=== PATIENT | male | born 1960 | race Caucasian/White ===

== ENCOUNTER 2016-09-29 17:57 | Inpatient (IN) | payer OTHER ==
[~2016-09-29] VITALS: Ht 177.8 cm; Wt 108.7 kg
[2016-09-29] VITALS (11 sets, daily range): BP systolic 115–170; BP diastolic 55–93; PULSE 68–120; RESP 14–24; TEMP 97.5–99.5; O2SAT 95–100
[~2016-09-29 17:57] MED LIST: ASPI325T PO; ATOR40TA PO; FISH100020 PO; METO50TA; NIAC500T18 PO; PLAV75TA PO
[2016-09-29] MEDS ORDERED: ETOMIDATE 20 MG/10 ML VIAL ONE (18:24)
[2016-09-29] MEDS ORDERED: PROPOFOL 1000 MG/100 ML INJ 100 ML ONE (18:29)
[2016-09-29] MEDS ORDERED: PANTOPRAZOLE INJ 80 MG in SODIUM CHLORIDE 0.9% INJ 35 ML IV ONE (18:30)
[2016-09-29] MEDS ORDERED: OCTREOTIDE INJ 500 MCG in SODIUM CHLORID 0.9% 500 ML INJ 500 ML IV ONE (18:30)
[2016-09-29] MEDS ORDERED: SODIUM CHLORIDE 0.9% FLUSH 10 ML FLUSH IVF PRN (18:30)
[2016-09-29] MEDS ORDERED: ROSU1TAB8 PO (18:43)
[2016-09-29] MEDS ORDERED: LISI-515 PO (18:43)
[2016-09-29] MEDS ORDERED: CLOP75TA PO (18:43)
[2016-09-29] MEDS ORDERED: GABA100C4 PO (18:43)
[2016-09-29] MEDS ORDERED: TIZA4CAP3 PO (18:43)
[2016-09-29] MEDS ORDERED: DICL1CAP3 PO (18:43)
[2016-09-29] MEDS ORDERED: SODIUM CHLOR 0.9% 1000 ML INJ 1,000 ML IV ONE ×2 (18:45)
[2016-09-29] MEDS ORDERED: ETOMIDATE 20 MG/10 ML VIAL IV PUSH ONE (18:45)
[2016-09-29] MEDS ORDERED: SUCCINYLCHOLINE CHLORIDE 200 MG/10 ML VIAL IV PUSH ONE (18:45)
--- NOTE | 2016-09-29 18:46 | PD ---
HPI Chief Complaint: GI Complaint Time Seen by Provider: 18:43 Travel History International Travel<30 days: No Contact w/Intl Traveler<30days: No Traveled to known affect area: No History of Present Illness HPI 55-year-old male came to the emergency room brought by his for vomiting blood. Patient says that he was little nauseous earlier today and vomited and saw a big blob of blood. Since then he has vomited couple of times and it's all bloody. He looks in distress and very diaphoretic. Patient told me that he has never had this before. Rings about 3 cocktails of whiskey every day and has been doing it for quite a few months. He is also on Plavix. His is here with him but she seems very anxious and tearful at this point. History is limited. Patient was hemodynamically stable however. [facility] Past Medical History Narrative Medical List of his past medical, surgical, social and family history was reviewed from the nursing note. Hx Anticoagulant Therapy: Yes Cardiovascular Problems: Yes Chest Pain: Yes Diabetes: No Hypertension: Yes Respiratory: Yes (SOB) Tetanus Vaccination: Unknown Past Surgical History Cardiac Surgery: Yes (QUADRUPLE BYPASS, STENT) Thoracic Surgery: Yes Other Surgery: Yes Social History Alcohol Use: Yes (2-3 bourbon qd) Tobacco Use: Yes (FORMER) Substance Use: No Allergies-Medications (Allergen,Severity, Reaction): Coded Allergies: No Known Allergies (Unverified , 08/01/14) Comments No known drug allergies. Reported Meds & Prescriptions Reported Meds & Active Scripts Active Reported Gabapentin 100 Mg Cap 100 Mg PO HS Tizanidine (Tizanidine HCl) 4 Mg Cap 4 Mg PO TID Zorvolex (Diclofenac) 18 Mg Cap 18 Mg PO TID Rosuvastatin (Rosuvastatin Calcium) 20 Mg Tab 20 Mg PO DAILY Lisinopril 20 Mg Tab 20 Mg PO DAILY Clopidogrel (Clopidogrel Bisulfate) 75 Mg Tab 75 Mg PO DAILY Narrative Medication List of his home medications reviewed from the nursing note. Review of Systems Except as stated in HPI: all other systems reviewed are Neg Physical Exam Narrative GENERAL: Awake, anxious, confused, significant distress, obese SKIN: Cold, pale, diaphoretic HEAD: Atraumatic. Normocephalic. EYES: Pupils equal and round. No scleral icterus. No injection or drainage. Pallor ENT: No nasal bleeding or discharge. Mucous membranes pink and moist. NECK: Trachea midline. No JVD. CARDIOVASCULAR: Regular rate and rhythm. No murmur appreciated. RESPIRATORY: No accessory muscle use. Clear to auscultation. Breath sounds equal bilaterally. GASTROINTESTINAL: Abdomen soft, non-tender, nondistended. Hepatic and splenic margins not palpable. MUSCULOSKELETAL: No obvious deformities. No clubbing. No cyanosis. No edema. NEUROLOGICAL: Confused, GCS of 14. No obvious cranial nerve deficits. Motor grossly within normal limits. Normal speech. PSYCHIATRIC: Appropriate mood and affect; insight and judgment normal. Data Data Last Documented VS Orders Etomidate Inj (Amidate Inj) (09/29/16 18:24) Pantoprazole Inj (Protonix Inj) (09/29/16 18:30) Pantoprazole Inj (Protonix Inj) (09/29/16 18:30) Octreotide Inj (Sandostatin Inj) (09/29/16 18:30) Propofol 1000 Mg/100 Ml Inj (Diprivan 10 (09/29/16 18:29) Complete Blood Count With Diff (09/29/16 18:29) Comprehensive Metabolic Panel (09/29/16 18:29) Prothrombin Time / Inr (Pt) (09/29/16 18:29) Act Partial Throm Time (Ptt) (09/29/16 18:29) Type And Screen (09/29/16 18:29) Ecg Monitoring (09/29/16 18:29) Iv Access Insert/Monitor (09/29/16 18:29) Oximetry (09/29/16 18:29) Sodium Chloride 0.9% Flush (Ns Flush) (09/29/16 18:30) Chest, Single Ap (09/29/16 ) Sodium Chlor 0.9% 1000 Ml Inj (Ns 1000 M (09/29/16 18:45) Sodium Chlor 0.9% 1000 Ml Inj (Ns 1000 M (09/29/16 18:45) Succinylcholine Inj (Quelicin Inj) (09/29/16 18:45) Etomidate Inj (Amidate Inj) (09/29/16 18:45) Propofol 1000 Mg/100 Ml Inj (Diprivan 10 (09/29/16 18:45) Octreotide Inj (Sandostatin Inj) (09/29/16 19:00) Octreotide Inj (Sandostatin Inj) (09/29/16 21:00) Npo After Midnight W/ Po Meds (09/29/16 Dinner) Consent (09/29/16 18:47) Admit Order (Ed Use Only) (09/29/16 18:48) Labs Laboratory Tests Test 09/29/16 18:30 Blood Type A NEGATIVE Antibody Screen NEGATIVE Crossmatch Leukocyte-Reduced Red Blood Cells Blood Bank Comment MDM Medical Decision Making Medical Screen Exam Complete: Yes Emergency Medical Condition: Yes Medical Record Reviewed: Yes Differential Diagnosis Upper GI bleed, PUD, gastric ulcer, bleeding varicose esophageal vein Narrative Course 6:56 PM case was discussed with Dr. Arriaga who was in the department. I decided to intubate the patient to protect his airway. Please refer to my procedure note. Patient got immediate to large bore IVs. He was getting IV fluid bolus. I asked for 4 units of uncross matched blood and patient has received 2 units of PRBC. OG tube was inserted and so far patient has put out 800 ML's of bright red blood. I have spoken with the cook supervisor who will admit the patient and the procedure will be done in the ICU. I discussed this with the . Critical Care Narrative Aggregate critical care time was 30 minutes. Time to perform other separately billable procedures was not included in the critical care time. My time did not include minutes spent treating any other patients simultaneously or on activities that did not directly contribute to the patient's treatment. The services I provided to this patient were to treat and/or prevent clinically significant deterioration that could result in: Massive upper GI bleed, volume resuscitation I provided critical care services requiring my management, as noted below: Chart data review, documentation time, medication orders and management, vital sign assessments/reviewing monitor data, ordering and reviewing lab tests, ordering and interpreting/reviewing x-rays and diagnostic studies, care of the patient and discussion of the patient with the admitting physicians. Procedures Procedure Narrative After the risks and benefits were discussed the following procedure was performed: INTUBATION: The patient was put in optimal position for the procedure. Rapid sequence intubation was initiated by me using 20 milligrams of etomidate IV and 100 milligrams of succinylcholine IV. The patient was intubated with a 7.5 cuffed endotracheal tube. Tube placement was confirmed by visualization of the tube and balloon passing through the cords, capnometry and subsequent chest x-ray. Breath sounds were equal and well aerated bilaterally postintubation. No breath sounds over stomach. Patient tolerated procedure well. EKG Prior to Arrival: No Physician Communication Physician Communication Dr. Arriaga, Dr. Ramsay Diagnosis Primary Impression: Upper GI bleed Additional Impression: Respiratory failure Qualified Code: J96.00 - Acute respiratory failure, unspecified whether with hypoxia or hypercapnia Admitting Information Admitting Physician Requests: Admit Terri Maradiaga MD Sep 29, 2016 18:46
[2016-09-29] MEDS ORDERED: MIDAZOLAM HCL 5 MG/ML VIAL (1 ML) ONE (18:50)
[2016-09-29] MEDS ORDERED: ROCURONIUM INJ 50 MG/5 ML VIAL ONE ×2 (18:51→18:54)
[2016-09-29] MEDS ORDERED: PROCHLORPERAZINE 25 MG SUPP RECTAL PRN (19:00)
[2016-09-29] MEDS ORDERED: OCTREOTIDE INJ 50 MCG/ML AMP IV ONE (19:00)
[2016-09-29] MEDS ORDERED: MAGNESIUM HYDROXIDE SUSP 30 ML CUP PO PRN (19:00)
[2016-09-29] MEDS ORDERED: ROCURONIUM INJ 100 MG/10 ML VIAL IV ONE (19:00)
[2016-09-29] MEDS ORDERED: RESP: ALBUTEROL 2.5 MG/IPRATROPIUM 0.5 MG NEB (PRN) INH (19:00)
[2016-09-29] MEDS ORDERED: BISACODYL 10 MG SUPP RECTAL PRN (19:00)
[2016-09-29] MEDS ORDERED: SENNOSIDES 8.6 MG TAB PO PRN (19:00)
[2016-09-29] MEDS ORDERED: ONDANSETRON HCL 4 MG/2 ML VIAL IV PRN (19:00)
[2016-09-29] MEDS ORDERED: MORPHINE SULFATE 4 MG/ML INJ IV PRN (19:00)
[2016-09-29] MEDS ORDERED: MIDAZOLAM HCL 2 MG/2 ML VIAL IV PUSH ONE (19:00)
[2016-09-29] MEDS ORDERED: CHLORHEXIDINE GLUCONATE 2 % 1 PACK (2 CLOTHS) TOP PRN (19:00)
[2016-09-29] MEDS ORDERED: METOCLOPRAMIDE HCL 10 MG/2 ML VIAL IV PRN (19:00)
[2016-09-29] MEDS ORDERED: SODIUM CHLORIDE 0.9% FLUSH 10 ML FLUSH PRN (19:00)
[2016-09-29] MEDS ORDERED: MISCELLANEOUS NURSING INFORMATION XX SCH (19:00)
[2016-09-29] MEDS ORDERED: LACTULOSE SYRUP 20 GM/30 ML CUP PO PRN (19:00)
[2016-09-29 19:13] LABS: BASOPHIL # 0.2 TH/MM3 (0-0.2); BASOPHIL % 0.8 % (0.0-2.0); EOSINOPHIL # 0.5 TH/MM3 (0-0.4); EOSINOPHIL % 2.3 % (0.0-4.0); HEMATOCRIT 40.6 % (39.0-51.0); HEMO FLAGS DIFF FINAL; LYMPH % 19.5 % (9.0-44.0); LYMPHOCYTE # 3.8 TH/MM3 (1.0-4.8); MEAN CELL VOLUME 89.5 FL (80.0-100.0); MEAN CORPUSCULAR HGB CONC 34.7 % (32.0-36.0); MONO % 5.8 % (0.0-8.0); NEUT % 71.6 % (16.0-70.0); PLATELET COUNT 227 TH/MM3 (150-450); RED BLOOD COUNT 4.53 MIL/MM3 (4.50-5.90); RED CELL DISTRIBUTION WIDTH 13.4 % (11.6-17.2); WHITE BLOOD COUNT 19.5 TH/MM3 (4.0-11.0)
[2016-09-29] MEDS: PANTOPRAZOLE INJ 80 MG in SODIUM CHLORIDE 0.9% INJ 100 ML IV SCH (19:17)
--- NOTE | 2016-09-29 19:28 | RADRPT ---
EXAM DATE/TIME: 09/29/2016 18:55 [place] COMPARISON: No previous studies available for comparison. INDICATIONS : Upper GI bleed ; post intubation. MEDICAL HISTORY : Cardiovascular disease. SURGICAL HISTORY : CABG. stent 2016 ENCOUNTER: Initial ACUITY: 1 day PAIN SCORE: Non-responsive. LOCATION: Bilateral upper chest FINDINGS: Bibasilar consolidation seen on the left. No pleural effusion. No pneumothorax. Heart size within normal limits. Previous median sternotomy. There is a nasogastric tube coiled in the stomach. Endotracheal tube tip is about 4 cm above the evelyne na. CONCLUSION: Mild left base consolidation. Lines and tubes as above. Dewayne Herndon MD on September 29, 2016 at 19:25 Board Certified Radiologist. This report was verified electronically.
[2016-09-29 19:35] LABS: ALT (GPT) 67 U/L (12-78)
[2016-09-29 19:36] LABS: ALKALINE PHOSPHATASE 60 U/L (45-117); TOTAL BILIRUBIN ADULT 0.5 MG/DL (0.2-1.0)
[2016-09-29 19:42] LABS: APTT (PATIENT) 21.2 SEC (24.3-30.1); PROTHROMBIN TIME - PATIENT 11.2 SEC (9.8-11.6)
--- NOTE | 2016-09-29 19:43 | HHI.HP ---
HPI Service Critical Care Medicine Primary Care Physician Lulú Mathews MD Admission Diagnosis upper GI bleed, respiratory failure Diagnosis: Travel History International Travel<30 Days: No Contact w/Intl Traveler <30 Da: No Traveled to Known Affected Are: No History of Present Illness 55-year-old male came to the emergency room brought by his for vomiting blood. Patient was little nauseous earlier today and vomited and saw a big blob of blood. Since then he has vomited couple of times and it's all bloody. He looked in distress and very diaphoretic. Patient drinks about 3 cocktails of whiskey every day and has been doing it for quite a few months. He is also on Plavix. While in the emergency department he vomited a large amount of blocked per documentation about 800 cc. He was intubated by ER attending for an airway protection and was taking emergently to ICU where the EGD was performed by GI specialist. Review of Systems ROS Unable to obtain patient is sedated and intubated Past Family Social History Allergies: Coded Allergies: No Known Allergies (Unverified , 08/01/14) Past Medical History Hypertension Dyslipidemia Coronary artery disease Past Surgical History Unable to obtain Reported Medications Reported Meds & Active Scripts Active Reported Gabapentin 100 Mg Cap 100 Mg PO HS Tizanidine (Tizanidine HCl) 4 Mg Cap 4 Mg PO TID Zorvolex (Diclofenac) 18 Mg Cap 18 Mg PO TID Rosuvastatin (Rosuvastatin Calcium) 20 Mg Tab 20 Mg PO DAILY Lisinopril 20 Mg Tab 20 Mg PO DAILY Clopidogrel (Clopidogrel Bisulfate) 75 Mg Tab 75 Mg PO DAILY Active Ordered Medications Current Medications Medications (Trade) Dose Ordered Sig/Any Route PRN Reason Start Time Stop Time Status Last Admin Dose Admin Pantoprazole Sodium/Sodium Chloride (Protonix Inj/NS Inj) 100 ml @ 10 mls/hr Q10H IV 09/29/16 18:30 09/29/16 19:17 Sodium Chloride 2 ml 2 ml UNSCH PRN IVF FLUSH AFTER USING IV ACCESS 09/29/16 18:30 Propofol 100 ml @ 0 mls/hr TITRATE IV 09/29/16 18:45 Octreotide Acetate 500 mcg/ Sodium Chloride 500.0 ml @ 50 mls/hr Q10H IV 09/29/16 21:00 09/29/16 23:02 Sodium Chloride (NS 1000 ml Inj) 1,000 ml @ 184 mls/hr Q5H27M IV 09/29/16 18:50 Sodium Chloride (NS Flush) 2 ml UNSCH PRN .XX FLUSH AFTER USING IV ACCESS 09/29/16 19:00 Sodium Chloride (NS Flush) 2 ml BID .XX 09/29/16 21:00 09/29/16 23:01 Morphine Sulfate (Morphine Inj) 2 mg Q2H PRN IV PAIN SCALE 6 TO 10 09/29/16 19:00 Pantoprazole Sodium (Protonix Inj) 40 mg Q12H IV 09/29/16 21:00 09/29/16 23:01 Midazolam HCl (Versed Inj) 2 mg Q1H PRN IV SEDATION 09/29/16 19:00 09/29/16 23:03 Artificial Tears (Tears Naturale Opth Soln) 1 drop TID EACH EYE 09/30/16 09:00 Ondansetron HCl (Zofran Inj) 4 mg Q6H PRN IV NAUSEA OR VOMITING 09/29/16 19:00 Metoclopramide HCl (Reglan Inj) 10 mg Q6H PRN IV NAUSEA OR VOMITING 09/29/16 19:00 Prochlorperazine (Compazine Supp) 25 mg Q12H PRN RECTAL NAUSEA OR VOMITING 09/29/16 19:00 Zolpidem Tartrate (Ambien) 5 mg HS PRN PO INSOMNIA 09/29/16 19:00 Miscellaneous Information 1 Q361D XX 09/29/16 19:00 09/29/16 22:00 Chlorhexidine Gluconate (Chlorhexidine 2% Cloth) 3 pack Taper DAILY@04 TOP 09/30/16 04:00 09/26/17 03:59 Chlorhexidine Gluconate (Chlorhexidine 2% Cloth) 3 pack UNSCH PRN TOP HYGIENIC CARE 09/29/16 19:00 Senna/Docusate Sodium (Adela-Colace) 1 tab BID PO 09/29/16 21:00 Magnesium Hydroxide (Milk Of Magnesia Liq) 30 ml Q12H PRN PO MILD - MODERATE CONSTIPATION 09/29/16 19:00 Sennosides (Senokot) 17.2 mg Q12H PRN PO MODERATE - SEVERE CONSTIPATION 09/29/16 19:00 Bisacodyl (Dulcolax Supp) 10 mg DAILY PRN RECTAL SEVERE CONSITIPATION 09/29/16 19:00 Lactulose 30 ml 30 ml DAILY PRN PO SEVERE CONSITIPATION 09/29/16 19:00 Midazolam HCl (Versed Inj) 100 ml @ 0 mls/hr TITRATE IV 09/29/16 22:45 09/29/16 23:03 Family History Unable to obtain Social History Drinks about 3 cocktails per day Denies cigarette and illicit drug abuse Physical Exam Vital Signs Vital Signs Date Time Temp Pulse Resp B/P Pulse Ox O2 Delivery O2 Flow Rate FiO2 09/29/16 19:09 120 18 131/60 100 Auto-Vent 09/29/16 18:40 97 100 09/29/16 18:32 24 96 Room Air 09/29/16 18:28 97.7 99 24 170/90 95 09/29/16 18:00 98.4 88 24 146/93 98 Room Air Physical Exam GENERAL: Well-nourished, well-developed patient. SKIN: Warm and dry. HEAD: Normocephalic. EYES: No scleral icterus. No injection or drainage. NECK: Supple, trachea midline. No JVD or lymphadenopathy. CARDIOVASCULAR: Regular rate and rhythm without murmurs, gallops, or rubs. RESPIRATORY: Breath sounds equal bilaterally. No accessory muscle use. GASTROINTESTINAL: Abdomen soft, non-tender, nondistended. MUSCULOSKELETAL: No cyanosis, or edema. BACK: Nontender without obvious deformity. No CVA tenderness. EXTREMITIES: No clubbing cyanosis or edema Laboratory Laboratory Tests Test 09/29/16 18:30 White Blood Count 19.5 Red Blood Count 4.53 Hemoglobin 14.1 Hematocrit 40.6 Mean Corpuscular Volume 89.5 Mean Corpuscular Hemoglobin 31.0 Mean Corpuscular Hemoglobin 34.7 Concent Red Cell Distribution Width 13.4 Platelet Count 227 Mean Platelet Volume 8.9 Neutrophils (%) (Auto) 71.6 Lymphocytes (%) (Auto) 19.5 Monocytes (%) (Auto) 5.8 Eosinophils (%) (Auto) 2.3 Basophils (%) (Auto) 0.8 Neutrophils # (Auto) 14.0 Lymphocytes # (Auto) 3.8 Monocytes # (Auto) 1.1 Eosinophils # (Auto) 0.5 Basophils # (Auto) 0.2 CBC Comment DIFF FINAL Differential Comment Prothrombin Time 11.2 Prothromb Time International 1.0 Ratio Activated Partial 21.2 Thromboplast Time Total Bilirubin 0.5 Alanine Aminotransferase 67 (ALT/SGPT) Alkaline Phosphatase 60 Total Protein 7.0 Blood Type A NEGATIVE Blood Bank Comment Result Diagram: 09/29/16 1830 Imaging Last 24 hours Impressions Chest X-Ray 09/29/16 0000 Signed Impressions: Service Date/Time: Thursday, September 29, 2016 18:55 - CONCLUSION: Mild left base consolidation. Lines and tubes as above. Dewayne Herndon MD Assessment and Plan Assessment and Plan Respiratory failure - Intubated for an airway protection - Continue mechanical ventilation - Keep intubated per GI request - SBT and attempt weaning trials when hemodynamically stable and without hematemesis Upper GI bleed - GI consult appreciated - Status post upper EGD and cauterization of distal esophagus - Continue Protonix drip and octreotide - Transfuse to keep hemoglobin above 7 - Management per GI Coronary artery disease - Hold Plavix due to active GI bleed - No acute issues - Supportive care History of hypertension - Hold lisinopril due to volume loss - Will resume in hemodynamically stable Dyslipidemia - Continue rosuvastatin DVT GI prophylaxis - Teds SCDs - No pharmacological DVT prophylaxis due to acute GI bleed - IV Protonix Critical Care: The total critical care time was 35 minutes. Time to perform other separately billable procedures was not included in the critical care time. Barak Ramsay MD Sep 29, 2016 19:43
[2016-09-29] MEDS: MIDAZOLAM HCL 2 MG/2 ML VIAL IV PRN ×2 (19:52→23:03)
[2016-09-29 20:01] LABS: ANION GAP 12 MEQ/L (5-15); AST (GOT) 35 U/L (15-37); BICARBONATE 22.3 MEQ/L (21.0-32.0); BLOOD UREA NITROGEN 32 MG/DL (7-18); CHLORIDE 106 MEQ/L (98-107); GLOMERULAR FILTRATION RATE 74 ML/MIN (>89); POTASSIUM 4.1 MEQ/L (3.5-5.1); SODIUM (NA) 140 MEQ/L (136-145)
[2016-09-29 20:01] LABS: BLOOD GAS BASE EXCESS -1.9 mmol/L (-2-2); BLOOD GAS HCO3 23 mmol/L (22-26); BLOOD GAS METHEMOGLOBIN 0.8 % (0-2); BLOOD GAS O2 HGB SATURATION 98 % (90-100); BLOOD GAS OXYGEN CONTENT 20.6 Vol % (12.0-20.0); BLOOD GAS PCO2 46 mmHg (38-42); BLOOD GAS PO2 304 mmHG (61-120); BLOOD GAS TOTAL HGB 14.5 G/DL (12.0-16.0); CRITICAL VALUE NO; OXYGEN DEVICE VENTILATOR; TEMP CORR TO 98.6
[2016-09-29 20:02] LABS: DRAW SITE RT RADIAL; FIO2 100 %; NUMBER OF ARTERIAL PUNCTURES 1; STAT YES; ULNAR PULSE PRESENT; VENT SETTINGS AC/14/600/PEEP5
[2016-09-29] MEDS: DOCUSATE SODIUM 50 MG/SENNA 8.6 MG TAB PO SCH (21:00)
[2016-09-29] MEDS ORDERED: OCTREOTIDE INJ 500 MCG in SODIUM CHLORID 0.9% 500 ML INJ 499.5 ML IV SCH (21:00)
[2016-09-29] MEDS ORDERED: EPINEPHrine HCL (1:10,000) 1 MG/10 ML SYRINGE OTHER ONE (21:23)
--- NOTE | 2016-09-29 21:58 | GIPROC ---
[facility] [address] [facility]. [facility], [address] EGD PROCEDURE REPORT EXAM DATE: 09/29/2016 PATIENT NAME: Geraldo Frias MR #: [id number] BIRTHDATE: 1960 ATTENDING: Edward Arriaga MD ORDER #: [id number] SATELLITE DISH INSTALLER: Giovana Booth and Lorene Owens STATUS: inpatient INDICATIONS: The patient is a 55 yr old male here for an EGD due to hematemesis PROCEDURE PERFORMED: EGD w/ ablation EGD w/ directed submucosal injection(s), any substance MEDICATIONS: Per Anesthesia and None. TOPICAL ANESTHETIC: CONSENT: The patient understands the risks and benefits of the procedure and understands that these risks include, but are not limited to: sedation, allergic reaction, infection, perforation and/or bleeding. Alternative means of evaluation and treatment include, among others: physical exam, x-rays, and/or surgical intervention. The patient elects to proceed with this endoscopic procedure. medical equipment was checked for proper function. Hand hygiene and appropriate measures for infection prevention was taken. After the risks, benefits and alternatives of the procedure were thoroughly explained, Informed consent was verified, confirmed and timeout was successfully executed by the treatment team. The patient was anesthetized with topical anesthesia and the Pentax [id number] endoscope was introduced through the mouth and advanced to the second portion of the duodenum. Retroflexed views revealed no abnormalities The gastroscope was then slowly withdrawn and removed. ESOPHAGUS: Large friable area of ulceration , probable darlin wies tear distal esophagus. Oozing blood with large clots adherant. Blood in the fundus able to be washed away. Distal esophagus injected with a total of 5 cc of epinephrine and cauterized. Good hemostasis obtained. NG replaced. STOMACH: The mucosa of the stomach appeared normal. DUODENUM: The duodenal mucosa appeared normal in the 2nd part of the duodenum. ADVERSE EVENTS: There were no complications. IMPRESSIONS: 1. Large friable area of ulceration , probable darlin wies tear distal esophagus. Oozing blood with large clots adherant. Blood in the fundus able to be washed away. Distal esophagus injected with a total of 5 cc of epinephrine and cauterized. Good hemostasis obtained. NG replaced 2. The mucosa of the stomach appeared normal 3. Normal duodenal mucosa in the 2nd part of the duodenum 4. Retroflexed views revealed no abnormalities RECOMMENDATIONS: Type and screen for 4 additional PRBC, transfuse 1 packet of platelets. Monitor serial H/H. Leave intubated. PATIENT CONDITION: stable DISPOSITION: Inpatient REPEAT EXAM: Return 1 day EGD Edward Arriaga MD eSigned: Edward Arriaga MD 09/29/2016 9:57 PM cc: PATIENT NAME: Geraldo Frias MR#: [id number]
[2016-09-29] MEDS: SODIUM CHLORIDE 0.9% FLUSH 10 ML FLUSH SCH (23:01)
[2016-09-29] MEDS: PANTOPRAZOLE SODIUM 40 MG VIAL IV SCH (23:01)
[2016-09-29] MEDS: MIDAZOLAM 100 MG/ML INJ 100 ML IV SCH (23:03)
[2016-09-29] MEDS: PROPOFOL 1000 MG/100 ML INJ 100 ML IV SCH (23:38)
[2016-09-29] MEDS: SODIUM CHLOR 0.9% 1000 ML INJ 1,000 ML IV SCH (23:39)
[2016-09-30] VITALS (19 sets, daily range): BP systolic 122–134; BP diastolic 69–78; PULSE 73–85; RESP 14–17; TEMP 98.7–100.3; O2SAT 94–100
[2016-09-30 01:18] LABS: HEMATOCRIT 47.2 % (39.0-51.0); REVIEW FLAG FINAL
[2016-09-30] MEDS: OCTREOTIDE INJ 500 MCG in SODIUM CHLORID 0.9% 500 ML INJ 499.5 ML IV SCH ×5 (01:52→21:21)
[2016-09-30] MEDS: CHLORHEXIDINE GLUCONATE 2 % 1 PACK (2 CLOTHS) TOP SCH (01:52)
[2016-09-30] MEDS: PROPOFOL 1000 MG/100 ML INJ 100 ML IV SCH ×5 (03:18→20:05)
[2016-09-30 03:29] LABS: REVIEW FLAG FINAL
[2016-09-30 03:39] LABS: PROTHROMBIN TIME - PATIENT 11.4 SEC (9.8-11.6)
[2016-09-30 03:47] LABS: ALT (GPT) 56 U/L (12-78); ANION GAP 7 MEQ/L (5-15); AST (GOT) 29 U/L (15-37); BICARBONATE 27.8 MEQ/L (21.0-32.0); BLOOD UREA NITROGEN 22 MG/DL (7-18); CHLORIDE 109 MEQ/L (98-107); GLOMERULAR FILTRATION RATE 92 ML/MIN (>89); POTASSIUM 3.9 MEQ/L (3.5-5.1); SODIUM (NA) 144 MEQ/L (136-145)
[2016-09-30 03:48] LABS: ALKALINE PHOSPHATASE 58 U/L (45-117); TOTAL BILIRUBIN ADULT 0.7 MG/DL (0.2-1.0)
[2016-09-30] MEDS: PANTOPRAZOLE INJ 80 MG in SODIUM CHLORIDE 0.9% INJ 100 ML IV SCH ×2 (04:44→15:30)
[2016-09-30] MEDS: SODIUM CHLOR 0.9% 1000 ML INJ 1,000 ML IV SCH (04:45)
--- NOTE | 2016-09-30 07:58 | MB ---
cc: DEVIKA ROJAS MD, HASSAN M.D. DATE OF CONSULTATION: 09/29/2016 REASON FOR CONSULTATION Hematemesis. HISTORY OF PRESENT ILLNESS Mr. Frias is a 55-year-old gentleman brought in by his for occasional bleeding in the rectum, but basically on the day of admission he threw up some blood, became diaphoretic and was brought in by his . In the emergency room he threw up a couple more times. By the time I got there to see him he had been electively intubated with an NG tube in place which is pulling dark red blood from his stomach. He remains hemodynamically stable. He is not passing any blood from his rectum. PAST MEDICAL HISTORY 1. Coronary artery disease. 2. Quadruple bypass with stent placement. No other medical history is obtainable at this time. SOCIAL HISTORY The patient drinks 2-3 drinks daily, is a former smoker. ALLERGIES None documented. MEDICATIONS Medicines on admission: 1. Gabapentin. 2. Tizanidine. 3. Diclofenac. 4. Lovastatin. 5. Lisinopril. 6. Plavix. 7. The patient also received a Toradol shot recently. REVIEW OF SYSTEMS Currently the patient is intubated with an NG tube showing dark blood. PHYSICAL EXAMINATION GENERAL: A well-nourished man in no apparent distress, sedated and intubated. VITAL SIGNS: Blood pressure 131/60. HEAD AND NECK: Anicteric sclera. CHEST: Bilateral air entry with rales. ABDOMEN: Obese, soft, nontender. No hepatosplenomegaly. Bowel sounds are present. SUPERVISOR TUMBLERS: Exam is nonfocal. RECTAL: Exam deferred at this time. LABORATORY Labs revealed hemoglobin 14, platelets 227. INR is pending. IMAGING A chest x-ray shows mild left base consolidation, otherwise unremarkable. IMPRESSION Acute GI bleeding, very likely peptic ulcer disease, possibility of liver-related bleeding. RECOMMENDATIONS Leave NG tube to low intermittent suctioning. Type and screen for 4 units of blood. Octreotide and IV Protonix recommended. Consents have been obtained for an EGD. The plan is to scope the patient this evening once he is moved to an intensive care unit location. Will follow with you. Thank you for this referral. MD ERIK Cunha/DODIE /7:42 PM /7:48 AM
[2016-09-30] MEDS: SODIUM CHLORIDE 0.9% FLUSH 10 ML FLUSH SCH ×2 (09:00→20:03)
[2016-09-30] MEDS: ARTIFICIAL TEARS OPTH SOLN 15 ML BTL EACH EYE SCH ×3 (09:00→17:23)
[2016-09-30] MEDS: DOCUSATE SODIUM 50 MG/SENNA 8.6 MG TAB PO SCH ×2 (09:00→20:04)
[2016-09-30] MEDS: PANTOPRAZOLE SODIUM 40 MG VIAL IV SCH ×2 (09:00→20:04)
--- NOTE | 2016-09-30 11:08 | HHI.CCPN ---
Subjective Remarks/Hospital Course 55-year-old male came to the emergency room brought by his for vomiting blood. Patient was little nauseous earlier today and vomited and saw a big blob of blood. Since then he has vomited couple of times and it's all bloody. He looked in distress and very diaphoretic. Patient drinks about 3 cocktails of whiskey every day and has been doing it for quite a few months. He is also on Plavix. While in the emergency department he vomited a large amount of blocked per documentation about 800 cc. He was intubated by ER attending for an airway protection and was taking emergently to ICU where the EGD was performed by GI specialist. Subjective: 09/30: Afebrile. NG tube continues to low intermittent wall suction, with coffee ground output. Patient remains sedated and intubated. OGT output since admission to ICU was approximately 850 cc overnight. Plans for repeat EGD today. Objective Vital Signs Date Time Temp Pulse Resp B/P Pulse Ox O2 Delivery O2 Flow Rate FiO2 09/30/16 10:26 97 40 09/30/16 10:00 77 09/30/16 08:00 99.4 16 134/78 09/29/16 20:19 Room Air Intake and Output 09/29/16 09/29/16 09/30/16 08:00 16:00 00:00 Intake Total 1313 ml Output Total 1900 ml Balance -587 ml Result Diagram: 09/30/16 0310 09/30/16 0310 Other Results Laboratory Tests Test 09/29/16 19:49 Blood Gas Puncture Site RT RADIAL Blood Gas Patient Temperature 98.6 Blood Gas HCO3 23 mmol/L (22-26) Blood Gas Base Excess -1.9 mmol/L (-2-2) Blood Gas Oxygen Saturation 98 % (90-100) Arterial Blood pH 7.33 (7.380-7.420) Arterial Blood Partial 46 mmHg (38-42) Pressure CO2 Arterial Blood Partial 304 mmHG Pressure O2 (61-120) Arterial Blood Oxygen Content 20.6 Vol % (12.0-20.0) Arterial Blood 1.0 % (0-4) Carboxyhemoglobin Arterial Blood Methemoglobin 0.8 % (0-2) Blood Gas Hemoglobin 14.5 G/DL (12.0-16.0) Oxygen Delivery Device VENTILATOR Blood Gas Ventilator Setting AC/14/600/PEEP5 Blood Gas Inspired Oxygen 100 % Imaging Last 24 hours Impressions Chest X-Ray 09/29/16 0000 Signed Impressions: Service Date/Time: Thursday, September 29, 2016 18:55 - CONCLUSION: Mild left base consolidation. Lines and tubes as above. Dewayne Herndon MD Objective Remarks GENERAL: Well-nourished, well-developed patient intubated and sedated. SKIN: Warm and dry. HEAD: Normocephalic. EYES: No scleral icterus. No injection or drainage. NECK: Supple, trachea midline. No JVD or lymphadenopathy. Orotracheal intubation CARDIOVASCULAR: Regular rate and rhythm without murmurs, gallops, or rubs. RESPIRATORY: Breath sounds equal bilaterally. No accessory muscle use. GASTROINTESTINAL: Abdomen soft, non-tender, nondistended. OG T to low intermittent wall suction coffee ground emesis noted MUSCULOSKELETAL: No cyanosis, or edema. EXTREMITIES: No clubbing cyanosis or edema Procedures Planned repeat EGD at bedside. Urinary Catheter: Yes Sethi insert reason: Measure Accurate Output Date of Insertion: Sep 29, 2016 Vascular Central Line Catheter: No A/P Assessment and Plan Respiratory failure - Intubated for an airway protection - Continue mechanical ventilation before meals 600/14/0.60/5 - Keep intubated per GI request - SBT and attempt weaning trials when hemodynamically stable and without hematemesis -Continue Versed and propofol infusions for ventilator synchrony Upper GI bleed Mahi-Crenshaw tear - GI following-Dr. Palomares - Status post upper EGD and cauterization of distal esophagus - Continue Protonix drip and octreotide - Transfuse to keep hemoglobin above 7 - Management per GI-plan for repeat EGD today Coronary artery disease - Hold Plavix due to active GI bleed - No acute issues - Supportive care History of hypertension - Hold lisinopril due to volume loss - Will resume in hemodynamically stable Dyslipidemia - Continue rosuvastatin DVT GI prophylaxis - Teds SCDs - No pharmacological DVT prophylaxis due to acute GI bleed - IV Protonix Msk: Functional maintenance Critical Care: This patient remains critically ill with one or more organ systems which are or may become a threat to life. I have spent in excess of 49 minutes discontinuously in the care and management of this patient. This time is exclusive of procedures, and includes, but is not limited to, evaluation of the patient, review of the medical record, discussions with family, consultants, nursing staff, or respiratory therapy, and documentation in the medical record. Physician Swathi Montanez MD Sep 30, 2016 11:08
[2016-09-30] MEDS: DEXT 5%-NACL 0.9% 1000 ML INJ 1,000 ML IV SCH ×2 (11:52→20:05)
[2016-09-30] MEDS ORDERED: EPINEPHrine HCL (1:1000) 1 MG/ML VIAL OTHER ONE (14:00)
--- NOTE | 2016-09-30 14:14 | GIPROC ---
[facility] [place] [address] [facility]. [facility], [address] EGD PROCEDURE REPORT EXAM DATE: 09/30/2016 PATIENT NAME: Geraldo Frias MR #: [id number] BIRTHDATE: 1960 ATTENDING: Edward Arriaga MD ORDER #: [id number] CLOTHING DESIGNER: Flaca Gonzalez and Fan Marshall STATUS: inpatient INDICATIONS: The patient is a 55 yr old male here for an EGD due to acute post hemorrhagic anemia and hematemesis PROCEDURE PERFORMED: EGD w/ ablation EGD w/ directed submucosal injection(s), any substance MEDICATIONS: None and Per Anesthesia. TOPICAL ANESTHETIC: CONSENT: The patient understands the risks and benefits of the procedure and understands that these risks include, but are not limited to: sedation, allergic reaction, infection, perforation and/or bleeding. Alternative means of evaluation and treatment include, among others: physical exam, x-rays, and/or surgical intervention. The patient elects to proceed with this endoscopic procedure. medical equipment was checked for proper function. Hand hygiene and appropriate measures for infection prevention was taken. After the risks, benefits and alternatives of the procedure were thoroughly explained, Informed consent was verified, confirmed and timeout was successfully executed by the treatment team. The patient was anesthetized with topical anesthesia and the Pentax EG-[id number] endoscope was introduced through the mouth and advanced to the second portion of the duodenum. Retroflexed views revealed blood in fundus The gastroscope was then slowly withdrawn and removed. ESOPHAGUS: Two ranging between 5-9mm in size bleeding and shallow ulcers with a visible vessel were found in the distal esophagus. Bipolar (BICAP) cautery with a 10Fr probe was applied to the sites for 5 secs. Moderate pressure was applied to the cautery site with complete hemostasis achieved. Submucosal injection of 3ml of epinephrine 1:10,000 was performed around the bleeding site with partial hemostasis achieved. Adherent blood. DUODENUM: The duodenal mucosa appeared normal. ADVERSE EVENTS: There were no complications. IMPRESSIONS: 1. Two ranging between 5-9mm in size ulcers were found in the distal esophagus; Bipolar (BICAP) cautery with a 10Fr probe was applied to the sites for 5 secs; with complete hemostasis achieved; Submucosal injection of 3ml of epinephrine 1:10,000 was performed around the bleeding site 2. Adherent blood 3. Normal duodenal mucosa 4. Retroflexed views revealed blood in fundus RECOMMENDATIONS: 1. Continue PPI 2. Keep intubated, on iv ppi and octreotide PATIENT CONDITION: stable DISPOSITION: Inpatient REPEAT EXAM: Return as needed for EGD Edward Arriaga MD eSigned: Edward Arriaga MD 09/30/2016 2:13 PM cc: PATIENT NAME: Geraldo Frias MR#: [id number]
[2016-09-30] MEDS ORDERED: PROPOFOL 200 MG/20 ML AMP IV ONE (14:35)
[2016-09-30] MEDS: MIDAZOLAM 100 MG/ML INJ 100 ML IV SCH (15:29)
[2016-09-30 16:22] LABS: HEMATOCRIT 39.7 % (39.0-51.0)
[2016-09-30 16:24] LABS: REVIEW FLAG FINAL
[2016-10-01] VITALS (17 sets, daily range): BP systolic 112–151; BP diastolic 54–83; PULSE 74–100; RESP 14–18; TEMP 99.4–101; O2SAT 94–99
[2016-10-01] MEDS: PROPOFOL 1000 MG/100 ML INJ 100 ML IV SCH ×4 (00:16→11:15)
[2016-10-01] MEDS: PANTOPRAZOLE INJ 80 MG in SODIUM CHLORIDE 0.9% INJ 100 ML IV SCH ×3 (00:32→21:35)
[2016-10-01] MEDS: CHLORHEXIDINE GLUCONATE 2 % 1 PACK (2 CLOTHS) TOP SCH (00:32)
[2016-10-01 01:07] LABS: HEMATOCRIT 36.3 % (39.0-51.0); REVIEW FLAG FINAL
[2016-10-01] MEDS: OCTREOTIDE INJ 500 MCG in SODIUM CHLORID 0.9% 500 ML INJ 499.5 ML IV SCH ×5 (03:10→21:37)
--- NOTE | 2016-10-01 04:26 | RADRPT ---
EXAM DATE/TIME: 10/01/2016 03:42 [facility] COMPARISON: CHEST SINGLE AP, September 29, 2016, 18:55. INDICATIONS : Short of breath. MEDICAL HISTORY : Cardiovascular disease. SURGICAL HISTORY : CABG. ENCOUNTER: Subsequent ACUITY: 2 days PAIN SCORE: 0/10 LOCATION: Bilateral chest FINDINGS: There is worsening perivascular parenchymal process and worse in the lung bases since the prior exami nation probable worsening pulmonary edema. Pneumonia in the left lung base is difficult to exclude. E T tube, and NG tube have not changed. CONCLUSION: Probable worsening pulmonary edema. Jemal Ramirez MD on October 01, 2016 at 4:22 Board Certified Radiologist. This report was verified electronically.
[2016-10-01 05:15] LABS: BLOOD GAS BASE EXCESS -0.8 mmol/L (-2-2); BLOOD GAS CARBOXYHEMOGLOBIN 1.7 % (0-4); BLOOD GAS HCO3 24 mmol/L (22-26); BLOOD GAS METHEMOGLOBIN 1.2 % (0-2); BLOOD GAS O2 HGB SATURATION 95 % (90-100); BLOOD GAS OXYGEN CONTENT 16.1 Vol % (12.0-20.0); BLOOD GAS PCO2 40 mmHg (38-42); BLOOD GAS PO2 96 mmHg (61-120); CRITICAL VALUE NO; OXYGEN DEVICE VENTILATOR; TEMP CORR TO 98.6
[2016-10-01 05:16] LABS: DRAW SITE RT RADIAL; FIO2 40 %; NUMBER OF ARTERIAL PUNCTURES 1; STAT NO; ULNAR PULSE PRESENT
[2016-10-01 05:17] LABS: VENT SETTINGS AC/RR14/VT600/PEEP5
[2016-10-01 07:07] LABS: HEMATOCRIT 36.2 % (39.0-51.0); MEAN CELL VOLUME 87.8 FL (80.0-100.0); PLATELET COUNT 119 TH/MM3 (150-450); RED BLOOD COUNT 4.12 MIL/MM3 (4.50-5.90); RED CELL DISTRIBUTION WIDTH 14.7 % (11.6-17.2); WHITE BLOOD COUNT 10.9 TH/MM3 (4.0-11.0)
[2016-10-01 07:20] LABS: BICARBONATE 23.8 MEQ/L (21.0-32.0); MAGNESIUM 1.9 MG/DL (1.5-2.5); POTASSIUM 3.6 MEQ/L (3.5-5.1)
[2016-10-01] MEDS: SODIUM CHLORIDE 0.9% FLUSH 10 ML FLUSH SCH ×2 (07:43→21:35)
[2016-10-01] MEDS: ARTIFICIAL TEARS OPTH SOLN 15 ML BTL EACH EYE SCH ×3 (07:43→17:40)
[2016-10-01] MEDS: DOCUSATE SODIUM 50 MG/SENNA 8.6 MG TAB PO SCH ×2 (07:44→21:35)
[2016-10-01] MEDS: PANTOPRAZOLE SODIUM 40 MG VIAL IV SCH (07:44)
[2016-10-01] MEDS: DEXT 5%-NACL 0.9% 1000 ML INJ 1,000 ML IV SCH ×2 (07:45→21:36)
--- NOTE | 2016-10-01 13:03 | HHI.CCPN ---
Subjective Remarks/Hospital Course 55-year-old male came to the emergency room brought by his for vomiting blood. Patient was little nauseous earlier today and vomited and saw a big blob of blood. Since then he has vomited couple of times and it's all bloody. He looked in distress and very diaphoretic. Patient drinks about 3 cocktails of whiskey every day and has been doing it for quite a few months. He is also on Plavix. While in the emergency department he vomited a large amount of blocked per documentation about 800 cc. He was intubated by ER attending for an airway protection and was taking emergently to ICU where the EGD was performed by GI specialist. Subjective: 09/30: Afebrile. NG tube continues to low intermittent wall suction, with coffee ground output. Patient remains sedated and intubated. OGT output since admission to ICU was approximately 850 cc overnight. Plans for repeat EGD today. 10/01: Afebrile. Repeat EGD performed yesterday revealing 2 ulcers located in the distal esophagus. Cauterization was performed with submucosal epinephrine with achievement of hemostasis. Plans for weaning and possible extubation this a.m.. NG tube output 225 cc overnight. Objective Vital Signs Date Time Temp Pulse Resp B/P Pulse Ox O2 Delivery O2 Flow Rate FiO2 10/01/16 11:46 94 Nasal Cannula 4 36 10/01/16 10:00 82 10/01/16 08:00 99.7 18 115/54 Intake and Output 09/30/16 09/30/16 10/01/16 08:00 16:00 00:00 Intake Total 1380 ml 1574 ml 1692 ml Output Total 1300 ml 1650 ml 950 ml Balance 80 ml -76 ml 742 ml Result Diagram: 10/01/16 0540 10/01/16 0540 Other Results Laboratory Tests Test 10/01/16 05:02 Blood Gas Puncture Site RT RADIAL Blood Gas Patient Temperature 98.6 Blood Gas HCO3 24 mmol/L (22-26) Blood Gas Base Excess -0.8 mmol/L (-2-2) Blood Gas Oxygen Saturation 95 % (90-100) Arterial Blood pH 7.39 (7.380-7.420) Arterial Blood Partial 40 mmHg (38-42) Pressure CO2 Arterial Blood Partial 96 mmHg Pressure O2 (61-120) Arterial Blood Oxygen Content 16.1 Vol % (12.0-20.0) Arterial Blood 1.7 % (0-4) Carboxyhemoglobin Arterial Blood Methemoglobin 1.2 % (0-2) Blood Gas Hemoglobin 12.0 G/DL (12.0-16.0) Oxygen Delivery Device VENTILATOR Blood Gas Ventilator Setting AC/RR14/VT600/PEEP5 Blood Gas Inspired Oxygen 40 % Imaging Last 24 hours Impressions Chest X-Ray 09/29/16 0000 Signed Impressions: Service Date/Time: Thursday, September 29, 2016 18:55 - CONCLUSION: Mild left base consolidation. Lines and tubes as above. Dewayne Herndon MD Objective Remarks GENERAL: Well-nourished, well-developed patient intubated and sedated. SKIN: Warm and dry. HEAD: Normocephalic. EYES: No scleral icterus. No injection or drainage. NECK: Supple, trachea midline. No JVD or lymphadenopathy. Orotracheal intubation CARDIOVASCULAR: Regular rate and rhythm without murmurs, gallops, or rubs. RESPIRATORY: Breath sounds equal bilaterally. No accessory muscle use. GASTROINTESTINAL: Abdomen soft, non-tender, nondistended. NGT to low intermittent wall suction biliousemesis noted MUSCULOSKELETAL: No cyanosis, or edema. EXTREMITIES: Movement of extremities 4. NEURO: RASS-2 Urinary Catheter: Yes Date of Insertion: Sep 29, 2016 Vascular Central Line Catheter: No A/P Assessment and Plan Respiratory failure - Intubated for an airway protection - Continue mechanical ventilation before meals 600/14/0.60/5 - Plan for extubation today - SBT NIF -24, FVC 1 L, RSBI 37 -ABG 7. 3/9/40/96/24/-0.8 Upper GI bleed Mahi-Crenshaw tear - GI following-Dr. Palomares - Status post upper EGDx 2 and cauterization of distal esophagus, 2 ulcers - Continue Protonix drip and octreotide - Transfuse to keep hemoglobin above 7 - Management per GI Coronary artery disease - Hold Plavix due to active GI bleed - No acute issues - Supportive care History of hypertension - Hold lisinopril due to volume loss - Will resume in hemodynamically stable Dyslipidemia - Continue rosuvastatin DVT GI prophylaxis - Teds SCDs - No pharmacological DVT prophylaxis due to acute GI bleed - IV Protonix Msk: Functional maintenance Critical Care: Dispo: Discussed with , and SURGICAL APPLIANCE FITTER at bedside This patient remains critically ill with one or more organ systems which are or may become a threat to life. I have spent in excess of 35 minutes discontinuously in the care and management of this patient. This time is exclusive of procedures, and includes, but is not limited to, evaluation of the patient, review of the medical record, discussions with family, consultants, nursing staff, or respiratory therapy, and documentation in the medical record. Physician Swathi Montanez MD Oct 01, 2016 13:03
--- NOTE | 2016-10-01 14:29 | HHI.GIFU ---
Subjective Remarks Resting in bed. Extubated earlier today. Very lethargic still. NGT with dark old appearing blood in tube- only 50cc this shift. at bedside. (Génesis, Areli NELSON) Objective Vitals I&O Vital Signs Date Time Temp Pulse Resp B/P Pulse Ox O2 Delivery O2 Flow Rate FiO2 10/01/16 14:00 95 10/01/16 12:00 93 Nasal Cannula 4.00 10/01/16 12:00 100 10/01/16 12:00 101.0 100 18 138/83 99 10/01/16 11:46 94 Nasal Cannula 4 36 10/01/16 10:00 82 10/01/16 08:00 74 10/01/16 08:00 99.7 74 18 115/54 96 10/01/16 08:00 40 10/01/16 07:40 40 10/01/16 07:40 96 40 10/01/16 06:00 77 10/01/16 04:12 96 40 10/01/16 04:00 40 10/01/16 04:00 80 10/01/16 04:00 99.4 80 16 112/63 95 10/01/16 02:00 83 10/01/16 01:27 95 40 10/01/16 00:00 82 10/01/16 00:00 100.2 82 15 124/68 95 10/01/16 00:00 40 09/30/16 22:16 96 40 09/30/16 22:00 84 09/30/16 20:28 96 40 09/30/16 20:00 100.3 84 17 128/69 95 09/30/16 20:00 40 09/30/16 20:00 84 09/30/16 18:00 40 09/30/16 18:00 83 09/30/16 16:00 100.0 85 14 134/75 96 09/30/16 16:00 85 09/30/16 15:36 94 40 I/O 09/30/16 09/30/16 09/30/16 10/01/16 10/01/16 10/01/16 07:00 15:00 23:00 07:00 15:00 23:00 Intake Total 1380 ml 1574 ml 1692 ml 1703 ml 867 ml Output Total 1300 ml 1650 ml 950 ml 700 ml 1510 ml Balance 80 ml -76 ml 742 ml 1003 ml -643 ml IV Total 1180 ml 1574 ml 1692 ml 1703 ml 867 ml Platelets 200 ml Output Urine Total 1150 ml 1500 ml 850 ml 550 ml 1450 ml Gastric Drainage Total 150 ml 150 ml 100 ml 150 ml 60 ml # Bowel Movements 0 0 0 Laboratory Laboratory Tests Test 09/30/16 10/01/16 10/01/16 10/01/16 16:08 00:13 05:02 05:40 Hemoglobin 13.1 12.6 12.0 Hematocrit 39.7 36.3 36.2 Blood Gas Puncture Site RT RADIAL Blood Gas Patient Temperature 98.6 Blood Gas HCO3 24 Blood Gas Base Excess -0.8 Blood Gas Oxygen Saturation 95 Arterial Blood pH 7.39 Arterial Blood Partial 40 Pressure CO2 Arterial Blood Partial 96 Pressure O2 Arterial Blood Oxygen Content 16.1 Arterial Blood 1.7 Carboxyhemoglobin Arterial Blood Methemoglobin 1.2 Blood Gas Hemoglobin 12.0 Oxygen Delivery Device VENTILATOR Blood Gas Ventilator Setting AC/RR14/VT600/PEEP5 Blood Gas Inspired Oxygen 40 White Blood Count 10.9 Red Blood Count 4.12 Mean Corpuscular Volume 87.8 Mean Corpuscular Hemoglobin 29.0 Mean Corpuscular Hemoglobin 33.0 Concent Red Cell Distribution Width 14.7 Platelet Count 119 Mean Platelet Volume 9.0 Sodium Level 143 Potassium Level 3.6 Chloride Level 109 Carbon Dioxide Level 23.8 Anion Gap 10 Blood Urea Nitrogen 11 Creatinine 0.88 Estimat Glomerular Filtration 91 Rate Random Glucose 119 Calcium Level 7.7 Phosphorus Level 2.4 Magnesium Level 1.9 Imaging Last Impressions Chest X-Ray 10/01/16 0600 Signed Impressions: Service Date/Time: Saturday, October 01, 2016 03:42 - CONCLUSION: Probable worsening pulmonary edema. Jemal Ramirez MD Physical Exam HEENT: Normocephalic; atraumatic; no jaundice. CHEST: CTA CARDIAC: RRR ABDOMEN: Soft, nondistended, nontender; no hepatosplenomegaly; bowel sounds are present in all four quadrants. NGT with small amount dark old appearing blood in tube EXTREMITIES: Generalized edema. SKIN: Normal; no rash; no jaundice. WAX ENGRAVER: Lethargic (Areli Capps) Assessment and Plan Plan ASSESSMENT: - Upper GI Bleeding. S/P EGD (09/30/16)----> 1. Two ranging between 5-9mm in size ulcers were found in the distal esophagus; Bipolar (BICAP) cautery with a 10Fr probe was applied to the sites for 5 secs ; with complete hemostasis achieved; Submucosal injection of 3ml of epinephrine 1:10,000 was performed around the bleeding site 2. Adherent blood 3. Normal duodenal mucosa 4. Retroflexed views revealed blood in fundus. HH stable 12.0/36.2. NGT with small amount of dark old appearing blood in NGT. Only 50cc this shift. Pt was already extubated. Protonix, Octreotide gtt. - Anemia secondary to blood loss. S/P 4 units PRBC. 1 unit Plt. HH stable 12.0/36.2. - Elevated Ammonia, encephalopathy. Pt was extubated, but he remains extremely lethargic. Will order scheduled Lactulose, Xifaxan and recheck in am. - CAD, Hx HTN, Dyslipidemia. Per [facility] PLAN: - Pt extubated, but remains extremely lethargic - Clamp NGT - Okay for clears once patient is alert - Add Lactulose 30mL po BID - Add Xifaxan 550mg po BID - Cont. Protonix and Octreotide today. Will change to bid dosing of protonix and d/c octreotide in am if no further bleeding - CBC in am - Supportive care - Further recommendations to follow based on results of above - Pt seen and examined by Dr. Arriaga and myself and this note is written on his behalf (Areli Capps) Physician Comments Seen and examined with OMAR, extubated, s/p egd x 2 in the last 36 hours. Monitor for bleeding, clear liquid diet. (Edward Arriaga MD) Areli Capps Oct 01, 2016 14:29 Edward Ariraga MD Oct 01, 2016 14:46
[2016-10-01] MEDS: LACTULOSE SYRUP 20 GM/30 ML CUP PO SCH (21:35)
[2016-10-01] MEDS: RIFAXIMIN 550 MG TAB PO SCH (21:35)
[2016-10-02] VITALS (14 sets, daily range): BP systolic 118–162; BP diastolic 67–80; PULSE 65–76; RESP 14–24; TEMP 98.2–99.8; O2SAT 96–99
[2016-10-02 01:19] LABS: HEMATOCRIT 37.9 % (39.0-51.0); REVIEW FLAG FINAL
[2016-10-02] MEDS: CHLORHEXIDINE GLUCONATE 2 % 1 PACK (2 CLOTHS) TOP SCH (04:00)
[2016-10-02] MEDS: OCTREOTIDE INJ 500 MCG in SODIUM CHLORID 0.9% 500 ML INJ 499.5 ML IV SCH (04:40)
[2016-10-02] MEDS: PANTOPRAZOLE INJ 80 MG in SODIUM CHLORIDE 0.9% INJ 100 ML IV SCH (06:37)
[2016-10-02 06:53] LABS: HEMATOCRIT 34.1 % (39.0-51.0); MEAN CELL VOLUME 87.1 FL (80.0-100.0); MEAN CORPUSCULAR HEMOGLOBIN 30.3 PG (27.0-34.0); MEAN CORPUSCULAR HGB CONC 34.8 % (32.0-36.0); PLATELET COUNT 120 TH/MM3 (150-450); RED BLOOD COUNT 3.91 MIL/MM3 (4.50-5.90); RED CELL DISTRIBUTION WIDTH 14.1 % (11.6-17.2); REVIEW FLAG FINAL; WHITE BLOOD COUNT 8.5 TH/MM3 (4.0-11.0)
[2016-10-02 07:12] LABS: BICARBONATE 28.5 MEQ/L (21.0-32.0); POTASSIUM 3.9 MEQ/L (3.5-5.1)
[2016-10-02] MEDS: LACTULOSE SYRUP 20 GM/30 ML CUP PO SCH ×2 (08:51→21:34)
[2016-10-02] MEDS: DOCUSATE SODIUM 50 MG/SENNA 8.6 MG TAB PO SCH ×2 (08:51→21:35)
[2016-10-02] MEDS: RIFAXIMIN 550 MG TAB PO SCH ×2 (08:51→21:34)
[2016-10-02] MEDS: SODIUM CHLORIDE 0.9% FLUSH 10 ML FLUSH SCH ×2 (08:51→21:36)
[2016-10-02] MEDS: ARTIFICIAL TEARS OPTH SOLN 15 ML BTL EACH EYE SCH (08:51)
--- NOTE | 2016-10-02 08:56 | HHI.GIFU ---
Subjective Remarks Resting in bed. More awake today. No n/v. No active bleeding. Tolerating clear liquids. NGT out. (Areli Capps) Objective Vitals I&O Vital Signs Date Time Temp Pulse Resp B/P Pulse Ox O2 Delivery O2 Flow Rate FiO2 10/02/16 06:00 65 10/02/16 04:00 70 10/02/16 04:00 98.4 70 24 127/68 98 10/02/16 04:00 98 Nasal Cannula 4.00 10/02/16 02:00 72 10/02/16 00:00 76 10/02/16 00:00 99.8 76 14 122/67 96 10/02/16 00:00 96 Nasal Cannula 4.00 10/01/16 22:00 83 10/01/16 20:00 86 10/01/16 20:00 100.0 86 16 151/76 98 10/01/16 20:00 98 Nasal Cannula 4.00 10/01/16 19:38 97 Nasal Cannula 3.00 10/01/16 18:00 91 10/01/16 16:00 98 Nasal Cannula 4.00 10/01/16 16:00 99.9 93 14 146/81 98 10/01/16 16:00 93 10/01/16 14:00 95 10/01/16 12:00 93 Nasal Cannula 4.00 10/01/16 12:00 100 10/01/16 12:00 101.0 100 18 138/83 99 10/01/16 11:46 94 Nasal Cannula 4 36 10/01/16 10:00 82 I/O 10/01/16 10/01/16 10/01/16 10/02/16 10/02/16 10/02/16 07:00 15:00 23:00 07:00 15:00 23:00 Intake Total 1703 ml 867 ml 877 ml 1180 ml Output Total 700 ml 1510 ml 1700 ml 900 ml Balance 1003 ml -643 ml -823 ml 280 ml IV Total 1703 ml 867 ml 877 ml 1180 ml Output Urine Total 550 ml 1450 ml 1700 ml 900 ml Gastric Drainage Total 150 ml 60 ml 0 ml # Bowel Movements 0 0 0 0 Laboratory Laboratory Tests Test 10/02/16 10/02/16 01:12 06:27 Hemoglobin 12.7 11.9 Hematocrit 37.9 34.1 White Blood Count 8.5 Red Blood Count 3.91 Mean Corpuscular Volume 87.1 Mean Corpuscular Hemoglobin 30.3 Mean Corpuscular Hemoglobin 34.8 Concent Red Cell Distribution Width 14.1 Platelet Count 120 Mean Platelet Volume 8.3 Sodium Level 142 Potassium Level 3.9 Chloride Level 108 Carbon Dioxide Level 28.5 Anion Gap 6 Blood Urea Nitrogen 10 Creatinine 0.84 Estimat Glomerular Filtration 96 Rate Random Glucose 108 Calcium Level 8.0 Phosphorus Level 2.1 Magnesium Level 2.0 Ammonia 38 Imaging Last Impressions Chest X-Ray 10/01/16 0600 Signed Impressions: Service Date/Time: Thursday, October 01, 2016 03:42 - CONCLUSION: Probable worsening pulmonary edema. Jemal Ramirez MD Physical Exam HEENT: Normocephalic; atraumatic; no jaundice. CHEST: CTA CARDIAC: RRR ABDOMEN: Soft, nondistended, nontender; no hepatosplenomegaly; bowel sounds are present in all four quadrants. EXTREMITIES: Generalized edema. SKIN: Normal; no rash; no jaundice. MOCK UP ASSEMBLER: lethargic, but oriented x 3 (Areli Capps) Assessment and Plan Plan ASSESSMENT: - Upper GI Bleeding. S/P EGD (09/30/16)----> 1. Two ranging between 5-9mm in size ulcers were found in the distal esophagus; Bipolar (BICAP) cautery with a 10Fr probe was applied to the sites for 5 secs ; with complete hemostasis achieved; Submucosal injection of 3ml of epinephrine 1:10,000 was performed around the bleeding site 2. Adherent blood 3. Normal duodenal mucosa 4. Retroflexed views revealed blood in fundus. HH stable 11.9/34.1. No further bleeding. Tolerating clears. NGT out. Protonix, Octreotide gtt. Will d/c drips and start protonix 40mg po BID. D/ W patient no NSAIDs, no ETOH. - Anemia secondary to blood loss. S/P 4 units PRBC. 1 unit Plt. HH stable 11.9/34.1. - Elevated Ammonia, encephalopathy. Improved. LFTs normal. Lactulose, Xifaxan. Lethargic, but oriented x 3 - Thrombocytopenia. Mild. Plt 120. - CAD, Hx HTN, Dyslipidemia. Per [facility] PLAN: - Heart healthy soft diet - D/C octreotide - D/C protonix gtt - Protonix 40mg po BID - Cont. Lactulose 30mL po BID - Cont. Xifaxan 550mg po BID - CBC in am - RUQ US - Supportive care - Further recommendations to follow based on results of above - Okay to transfer to medical floor from GI standpoint - Pt seen and examined by Dr. Arriaga and myself and this note is written on his behalf (Areli Capps) Physician Comments Seen and examined , doing well. Tolerating liquid diet. Advance diet as tolerated. Repeat egd in 02 weeks. Colonoscopy at the same time. Discussed with pt. and . Will sign off, reconsult as needed. Thank you (Edward Arriaga MD) Areli Capps Oct 02, 2016 08:55 Edward Arriaga MD Oct 02, 2016 14:23
[2016-10-02] MEDS: PANTOPRAZOLE SOD 40 MG DELAYED RELEASE TAB PO SCH ×2 (09:04→21:35)
--- NOTE | 2016-10-02 11:57 | HHI.CCPN ---
Subjective Remarks/Hospital Course 55-year-old male came to the emergency room brought by his for vomiting blood. Patient was little nauseous earlier today and vomited and saw a big blob of blood. Since then he has vomited couple of times and it's all bloody. He looked in distress and very diaphoretic. Patient drinks about 3 cocktails of whiskey every day and has been doing it for quite a few months. He is also on Plavix. While in the emergency department he vomited a large amount of blocked per documentation about 800 cc. He was intubated by ER attending for an airway protection and was taking emergently to ICU where the EGD was performed by GI specialist. Subjective: 09/30: Afebrile. NG tube continues to low intermittent wall suction, with coffee ground output. Patient remains sedated and intubated. OGT output since admission to ICU was approximately 850 cc overnight. Plans for repeat EGD today. 10/01: Afebrile. Repeat EGD performed yesterday revealing 2 ulcers located in the distal esophagus. Cauterization was performed with submucosal epinephrine with achievement of hemostasis. Plans for weaning and possible extubation this a.m.. NG tube output 225 cc overnight. 10/02: The patient was successfully extubated yesterday morning. No dyspnea noted the patient has been weaned down to O2 at 2 L nasal cannula. Aggressive pulmonary toileting has been instituted instruction in incentive spirometry. Patient complains of no pain no further bleeding of note NG tube was removed, last evening. Unable to quantify if any bleeding occurred during the night. The patient denies any nausea no hematemesis this a.m.. Right upper called quadrant ultrasound pending. Per GI patient's diet has been advanced. Plans for OT PT evaluation up out of bed. Objective Vital Signs Date Time Temp Pulse Resp B/P Pulse Ox O2 Delivery O2 Flow Rate FiO2 10/02/16 10:00 66 10/02/16 09:25 97 Nasal Cannula 2.00 10/02/16 08:00 98.5 14 118/69 10/01/16 11:46 36 Intake and Output 10/01/16 10/01/16 10/02/16 08:00 16:00 00:00 Intake Total 1703 ml 867 ml 877 ml Output Total 700 ml 1510 ml 1700 ml Balance 1003 ml -643 ml -823 ml Result Diagram: 6/15/17 0627 10/02/16 0627 Imaging Last 24 hours Impressions Chest X-Ray 09/29/16 0000 Signed Impressions: Service Date/Time: Thursday, September 29, 2016 18:55 - CONCLUSION: Mild left base consolidation. Lines and tubes as above. Dewayne Herndon MD Objective Remarks GENERAL: Well-nourished, well-developed patient awake and responsive SKIN: Warm and dry. HEAD: Normocephalic. EYES: No scleral icterus. No injection or drainage. NECK: Supple, trachea midline. No JVD or lymphadenopathy. CARDIOVASCULAR: Regular rate and rhythm without murmurs, gallops, or rubs. RESPIRATORY: Breath sounds equal bilaterally. No accessory muscle use. GASTROINTESTINAL: Abdomen soft, non-tender, nondistended. NGT to low intermittent wall suction biliousemesis noted MUSCULOSKELETAL: No cyanosis, or edema. EXTREMITIES: Movement of extremities 4. Edematous left hand secondary to IV infiltration noted NEURO: GCS 15. Alert and oriented 3 Urinary Catheter: Yes Assessment to: Remove Date of Insertion: Sep 29, 2016 A/P Assessment and Plan Respiratory failure-resolved - Maintain O2 sat greater than 92%, patient currently on O2 at 2 L nasal cannula , wean as tolerated - Incentive spirometry Upper GI bleed Mahi-Crenshaw tear - GI following-Dr. Palomares - Status post upper EGDx 2 and cauterization of distal esophagus, 2 ulcers - Discontinue Protonix drip and octreotide per GI recommendations - Transfuse to keep hemoglobin above 7 - Management per GI -Right upper quadrant ultrasound scheduled for today -Diet advance per GI -Lactulose and rifaximin continued per GI recommendations Coronary artery disease - Hold Plavix due to active GI bleed - No acute issues - Supportive care -PT evaluation out of bed recliner chair and begin ambulation for strengthening History of hypertension - Hold lisinopril due to volume loss - Will resume in hemodynamically stable Dyslipidemia - Continue rosuvastatin DVT GI prophylaxis - Teds SCDs - No pharmacological DVT prophylaxis due to acute GI bleed - IV Protonix Msk: PT evaluation and treat out of bed Critical Care: Level 3 Dispo: ZIPPER SETTER at bedside Plan transfer to [facility] in a. Physician Swathi Montanez MD Oct 02, 2016 11:57
[2016-10-02 14:41] LABS: HEMATOCRIT 39.3 % (39.0-51.0); REVIEW FLAG FINAL
--- NOTE | 2016-10-02 16:58 | RADRPT ---
EXAM DATE/TIME: 10/02/2016 14:01 [facility] COMPARISON: No previous studies available for comparison. INDICATIONS : Vomiting blood MEDICAL HISTORY : Cirrhosis. Hypertension. Shortness of breath. ETOH abuse. Dyslipidemia. SURGICAL HISTORY : Quadruple bypass. Cardiac stent. ENCOUNTER: Initial ACUITY: 1 day PAIN SCORE: 0/10 LOCATION: Right upper quadrant MEASUREMENTS: LIVER: 20.7 cm length COMMON DUCT: Non-visualized RIGHT KIDNEY: 13.3 x 5.8 x 5.6 cm SPLEEN: 14.7 cm length FINDINGS: LIVER: There is increased echogenicity of the liver suggesting diffuse fatty infiltration. No mass is seen. The portal vein is patent. No intrahepatic or duct dilation is identified. COMMON DUCT: No intraluminal mass or stone visualized. GALLBLADDER: There is sludge filling the dependent portion of the gallbladder. There is a single punctate stone ev ident as well. No significant paracolic is thick fluid or gallbladder wall thickening is identified. PANCREAS: The pancreas was not visualized due to body habitus. RIGHT KIDNEY: No hydronephrosis, stone or mass. SPLEEN: No focal lesion. CONCLUSION: 1. Dense echogenic liver suggesting diffuse fatty infiltration. 2. Sludge-filled gallbladder. No pericholecystic fluid or significant gallbladder wall thickening al ntified. Ishaan Yin MD on October 02, 2016 at 16:54 Board Certified Radiologist. This report was verified electronically.
[2016-10-02 23:00] LABS: HEMATOCRIT 37.7 % (39.0-51.0); REVIEW FLAG FINAL
[2016-10-03] VITALS (7 sets, daily range): BP systolic 141–169; BP diastolic 65–81; PULSE 58–75; RESP 18–20; TEMP 97.8–99.2; O2SAT 96–100
[2016-10-03] MEDS: ZOLPIDEM TARTRATE 5 MG TAB PO PRN ×2 (00:31→22:24)
[2016-10-03] MEDS: CHLORHEXIDINE GLUCONATE 2 % 1 PACK (2 CLOTHS) TOP SCH (04:00)
[2016-10-03] MEDS: SODIUM CHLORIDE 0.9% FLUSH 10 ML FLUSH SCH ×2 (09:00→22:25)
--- NOTE | 2016-10-03 09:50 | HHI.PR ---
Subjective Remarks in no acute distress. denies abdominal pain, nausea or vomiting. has occasional cough. Objective Vitals Vital Signs Date Time Temp Pulse Resp B/P Pulse Ox O2 Delivery O2 Flow Rate FiO2 10/03/16 08:00 98.4 66 20 144/75 97 10/03/16 04:00 98.1 58 18 141/65 99 10/03/16 00:13 58 10/03/16 00:00 97.8 59 18 163/75 100 10/03/16 00:00 Nasal Cannula 3.00 10/02/16 22:00 70 10/02/16 20:54 98 Nasal Cannula 2.00 10/02/16 20:00 68 10/02/16 20:00 99 Nasal Cannula 4.00 10/02/16 20:00 98.3 68 22 161/77 99 10/02/16 18:00 65 10/02/16 16:00 99 Nasal Cannula 3.00 10/02/16 16:00 98.9 71 14 162/80 99 10/02/16 16:00 71 10/02/16 14:00 70 10/02/16 12:00 67 10/02/16 12:00 98.2 67 16 151/75 97 10/02/16 12:00 97 Nasal Cannula 3.00 10/02/16 10:00 66 I/O 10/02/16 10/02/16 10/02/16 10/03/16 10/03/16 10/03/16 07:00 15:00 23:00 07:00 15:00 23:00 Intake Total 1180 ml 212 ml 730 ml 240 ml Output Total 900 ml 1450 ml 1400 ml 650 ml Balance 280 ml -1238 ml -670 ml -410 ml Intake Oral 200 ml 240 ml IV Total 1180 ml 212 ml 530 ml Output Urine Total 900 ml 1450 ml 1400 ml 650 ml # Bowel Movements 0 0 0 Result Diagram: 10/02/16 2227 10/02/16 0627 Imaging Last Impressions Liver Ultrasound 10/02/16 0000 Signed Impressions: Service Date/Time: September 14:01 - CONCLUSION: 1. Dense echogenic liver suggesting diffuse fatty infiltration. 2. Sludge-filled gallbladder. No pericholecystic fluid or significant gallbladder wall thickening identified. Ishaan Yin MD Chest X-Ray 10/01/16 0600 Signed Impressions: Service Date/Time: Saturday, October 01, 2016 03:42 - CONCLUSION: Probable worsening pulmonary edema. Jemal Ramirez MD Objective Remarks GENERAL: This is a well-nourished, well-developed patient, in no apparent distress. CARDIOVASCULAR: Regular rate and regular rhythm without murmurs, gallops, or rubs. RESPIRATORY: Clear to auscultation. Breath sounds equal bilaterally. No wheezes , rales, or rhonchi. GASTROINTESTINAL: Abdomen soft, non-tender, nondistended. Normal, active bowel sounds MUSCULOSKELETAL: Extremities without clubbing, cyanosis, or edema. NEURO: Alert & Oriented x4 to person, place, time, situation. Moves all ext x4 Procedures EGD Medications and IVs Current Medications Etomidate 20 mg 20 mg STK-MED ONCE .ROUTE Last administered on 09/29/16 18:45 ; Start 09/29/16 at 18:24; Stop 09/29/16 at 18:25; Status DC Pantoprazole Sodium 80 mg/ Sodium Chloride 35 ml @ 420 mls/hr ONCE ONCE IV Last administered on 09/29/16 19:17; Start 09/29/16 at 18:30; Stop 09/29/16 at 18:34; Status DC Pantoprazole Sodium 80 mg/ Sodium Chloride 100 ml @ 10 mls/hr Q10H IV Last administered on 10/02/16 06:37; Start 09/29/16 at 18:30; Stop 10/02/16 at 08:51 ; Status DC Octreotide Acetate 500 mcg/ Sodium Chloride 500.5 ml @ 0 mls/hr ONCE ONCE IV Last administered on 09/29/16 19:51; Start 09/29/16 at 18:30; Stop 09/29/16 at 18:31; Status DC Propofol (Diprivan 1000 Mg/100ml Inj) 100 ml @ As Directed STK-MED ONCE .ROUTE Last administered on 09/29/16 18:45; Start 09/29/16 at 18:29; Stop 09/29/16 at 18:30; Status DC Sodium Chloride 2 ml 2 ml UNSCH PRN IVF FLUSH AFTER USING IV ACCESS; Start 04/05 at 18:30 Sodium Chloride 1,000 ml @ 999 mls/hr BOLUS ONCE IV Last administered on 09/29 18:59; Start 09/29/16 at 18:45; Stop 09/29/16 at 19:45; Status DC Sodium Chloride (NS 1000 ml Inj) 1,000 ml @ 999 mls/hr BOLUS ONCE IV Last administered on 09/29/16 18:59; Start 09/29/16 at 18:45; Stop 09/29/16 at 19:45 ; Status DC Succinylcholine Chloride (Quelicin Inj) 100 mg ONCE ONCE IV PUSH Last administered on 09/29/16 18:56; Start 09/29/16 at 18:45; Stop 09/29/16 at 18:46 ; Status DC Etomidate 20 mg 20 mg ONCE ONCE IV PUSH ; Start 09/29/16 at 18:45; Stop at 18:46; Status DC Propofol (Diprivan 1000 Mg/100ml Inj) 100 ml @ 0 mls/hr TITRATE IV Last administered on 10/01/16 11:15; Start 09/29/16 at 18:45; Stop 10/02/16 at 23:34 ; Status DC Octreotide Acetate 50 mcg 50 mcg ONCE ONCE IV Last administered on 09/29/16 19:52; Start 09/29/16 at 19:00; Stop 09/29/16 at 19:01; Status DC Octreotide Acetate/Sodium Chloride (SandoSTATIN INJ/ NS 500 ml Inj) 500.0 ml @ 50 mls/hr Q10H IV Last administered on 09/29/16 23:02; Start 09/29/16 at 21:00 ; Stop 09/29/16 at 23:21; Status DC Midazolam HCl (Versed Inj) 5 mg STK-MED ONCE .ROUTE ; Start 09/29/16 at 18:50; Stop 09/29/16 at 18:51; Status DC Midazolam HCl (Versed Inj) 2 mg ONCE ONCE IV PUSH Last administered on 18:57; Start 09/29/16 at 19:00; Stop 09/29/16 at 19:01; Status DC Rocuronium [place] (Zemuron Inj) 100 mg BOLUS ONCE IV Last administered on 18:58; Start 09/29/16 at 19:00; Stop 09/29/16 at 19:01; Status DC Rocuronium [place] (Zemuron Inj) 50 mg STK-MED ONCE .ROUTE Last administered on 09/29/16 18:57; Start 09/29/16 at 18:51; Stop 09/29/16 at 18:52; Status DC Rocuronium [place] 50 mg 50 mg STK-MED ONCE .ROUTE ; Start 09/29/16 at 18:54; Stop 09/29/16 at 18:55; Status DC Sodium Chloride (NS 1000 ml Inj) 1,000 ml @ 184 mls/hr Q5H27M IV Last administered on 09/30/16 04:45; Start 09/29/16 at 18:50; Stop 09/30/16 at 11:03 ; Status DC Sodium Chloride (NS Flush) 2 ml UNSCH PRN .XX FLUSH AFTER USING IV ACCESS; Start 09/29/16 at 19:00 Sodium Chloride (NS Flush) 2 ml BID .XX Last administered on 10/02/16 21:36; Start 09/29/16 at 21:00 Morphine Sulfate (Morphine Inj) 2 mg Q2H PRN IV PAIN SCALE 6 TO 10; Start 09/29 at 19:00 Pantoprazole Sodium (Protonix Inj) 40 mg Q12H IV Last administered on 20:04; Start 09/29/16 at 21:00; Stop 10/01/16 at 14:33; Status DC Midazolam HCl (Versed Inj) 2 mg Q1H PRN IV SEDATION Last administered on 23:03; Start 09/29/16 at 19:00; Stop 10/03/16 at 00:19; Status DC Artificial Tears (Tears Naturale Opth Soln) 1 drop TID EACH EYE Last administered on 10/01/16 17:40; Start 09/30/16 at 09:00; Stop 10/02/16 at 13:16 ; Status DC Ondansetron HCl (Zofran Inj) 4 mg Q6H PRN IV NAUSEA OR VOMITING; Start at 19:00 Metoclopramide HCl (Reglan Inj) 10 mg Q6H PRN IV NAUSEA OR VOMITING; Start 04/05 at 19:00 Prochlorperazine (Compazine Supp) 25 mg Q12H PRN RECTAL NAUSEA OR VOMITING; Start 09/29/16 at 19:00 Zolpidem Tartrate (Ambien) 5 mg HS PRN PO INSOMNIA Last administered on 00:31; Start 09/29/16 at 19:00 Albuterol/ Ipratropium (Duoneb Neb) 1 ampule Q2HR NEB PRN INH WHEEZING; Start 09/29/16 at 19:00 Miscellaneous Information 1 Q361D XX Last administered on 09/29/16 22:00; Start 09/29/16 at 19:00 Chlorhexidine Gluconate (Chlorhexidine 2% Cloth) 3 pack Taper DAILY@04 TOP Last administered on 10/02/16 04:00; Start 09/30/16 at 04:00; Stop 09/26/17 at 03:59 Chlorhexidine Gluconate (Chlorhexidine 2% Cloth) 3 pack UNSCH PRN TOP HYGIENIC CARE; Start 09/29/16 at 19:00 Senna/Docusate Sodium (Adela-Colace) 1 tab BID PO Last administered on 21:35; Start 09/29/16 at 21:00 Magnesium Hydroxide (Milk Of Magnesia Liq) 30 ml Q12H PRN PO MILD - MODERATE CONSTIPATION; Start 09/29/16 at 19:00 Sennosides (Senokot) 17.2 mg Q12H PRN PO MODERATE - SEVERE CONSTIPATION; Start 09/29/16 at 19:00 Bisacodyl (Dulcolax Supp) 10 mg DAILY PRN RECTAL SEVERE CONSITIPATION; Start at 19:00 Lactulose (Lactulose Liq) 30 ml DAILY PRN PO SEVERE CONSITIPATION; Start at 19:00; Stop 10/01/16 at 14:32; Status DC Epinephrine HCl 1 mg 1 mg STK-MED ONCE OTHER Last administered on 09/29/16 21: 23; Start 09/29/16 at 21:23; Stop 09/29/16 at 22:22; Status DC Midazolam HCl 100 ml @ 0 mls/hr TITRATE IV Last administered on 09/30/16 15:29 ; Start 09/29/16 at 22:45; Stop 10/02/16 at 23:34; Status DC Octreotide Acetate 500 mcg/ Sodium Chloride 500 ml @ 100 mls/hr Q5H IV Last administered on 10/02/16 04:40; Start 09/30/16 at 02:00; Stop 10/02/16 at 08:51 ; Status DC Dextrose/Sodium Chloride (D5W-NS 1000 ml Inj) 1,000 ml @ 30 mls/hr Q24H IV Last administered on 10/01/16 21:36; Start 09/30/16 at 11:15; Stop 10/02/16 at 23:46; Status DC Epinephrine HCl (Adrenalin (1:1000) Inj) 1 mg STK-MED ONCE OTHER Last administered on 09/30/16 14:00; Start 09/30/16 at 14:00; Stop 09/30/16 at 14:34 ; Status DC Propofol (Diprivan 200 Mg/20 ml Inj) 100 mg STK-MED ONCE IV ; Start 09/30/16 at 14:35; Stop 09/30/16 at 14:36; Status DC Rifaximin (Xifaxan) 550 mg BID PO Last administered on 10/02/16 21:34; Start 10/01/16 at 21:00 Lactulose (Lactulose Liq) 30 ml BID PO Last administered on 10/02/16 21:34; Start 10/01/16 at 21:00 Pantoprazole Sodium (Protonix) 40 mg Q12HR PO Last administered on 10/02/16 21 :35; Start 10/02/16 at 09:00 Date of Insertion: Sep 29, 2016 A/P Assessment and Plan A/P acute respiratory failure-resolved - Maintain O2 sat greater than 92%, patient currently on O2 at 2 L nasal cannula , wean as tolerated - Incentive spirometry Upper GI bleed Mahi-Crenshaw tear - GI following-Dr. Palomares - Status post upper EGDx 2 and cauterization of distal esophagus, 2 ulcers - Discontinued Protonix drip and octreotide per GI recommendations; started on po protonix -Diet advance per GI -Lactulose and rifaximin continued per GI recommendations Coronary artery disease - Hold Plavix/aspirin due to active GI bleed - No acute issues - Supportive care -PT evaluation out of bed recliner chair and begin ambulation for strengthening History of hypertension - resume lisinopril - continue to monitor Dyslipidemia - Continue rosuvastatin DVT prophylaxis - Teds SCDs - No pharmacological DVT prophylaxis due to acute GI bleed continue PT. Discharge Planning dc to rehab in am if stable. Keenan Dumont MD Oct 03, 2016 09:50
[2016-10-03] MEDS: RIFAXIMIN 550 MG TAB PO SCH ×2 (10:26→22:22)
[2016-10-03] MEDS: LACTULOSE SYRUP 20 GM/30 ML CUP PO SCH ×2 (10:26→21:00)
[2016-10-03] MEDS: DOCUSATE SODIUM 50 MG/SENNA 8.6 MG TAB PO SCH ×2 (10:26→21:00)
[2016-10-03] MEDS: PANTOPRAZOLE SOD 40 MG DELAYED RELEASE TAB PO SCH ×2 (10:26→22:23)
[2016-10-03] MEDS: LISINOPRIL 20 MG TAB PO SCH (11:44)
[2016-10-03 12:04] LABS: AUTOMATED NEUTROPHIL # 7.3 TH/MM3 (1.8-7.7); BASOPHIL % 0.3 % (0.0-2.0); EOSINOPHIL # 0.3 TH/MM3 (0-0.4); EOSINOPHIL % 3.1 % (0.0-4.0); HEMATOCRIT 37.6 % (39.0-51.0); HEMO FLAGS DIFF FINAL; MEAN CELL VOLUME 87.4 FL (80.0-100.0); MEAN CORPUSCULAR HEMOGLOBIN 29.3 PG (27.0-34.0); MEAN CORPUSCULAR HGB CONC 33.6 % (32.0-36.0); MONO % 5.4 % (0.0-8.0); NEUT % 80.2 % (16.0-70.0); PLATELET COUNT 157 TH/MM3 (150-450); RED CELL DISTRIBUTION WIDTH 13.8 % (11.6-17.2); WHITE BLOOD COUNT 9.1 TH/MM3 (4.0-11.0)
[2016-10-03 12:26] LABS: BICARBONATE 25.7 MEQ/L (21.0-32.0); MAGNESIUM 2.1 MG/DL (1.5-2.5); POTASSIUM 3.2 MEQ/L (3.5-5.1)
--- NOTE | 2016-10-03 14:23 | HHI.FF ---
Face to Face Verification Diagnosis: (1) Upper GI bleed Physical Therapy Order: Evaluate and Treat I have seen patient Geraldo Frias on 10/03/16. My clinical findings support the need for the requested home health care services because: Ltd mobility - disease progression I certify that my clinical findings support that this patient is homebound because: Unsteady gait/balance Keenan Dumont MD Oct 03, 2016 14:23
[2016-10-03] MEDS: ASPIRIN EC 81 MG TABEC PO SCH (15:22)
[2016-10-03] MEDS: CLOPIDOGREL 75 MG TAB PO SCH (15:23)
[2016-10-04] VITALS: BP 153/73; PULSE 71; RESP 20; TEMP 98.3; O2SAT 96
[2016-10-04] MEDS: CHLORHEXIDINE GLUCONATE 2 % 1 PACK (2 CLOTHS) TOP SCH (03:08)
[2016-10-04 04:00] VITALS: BP 162/85; PULSE 72; RESP 20; TEMP 98.3; O2SAT 97
[2016-10-04 08:00] VITALS: BP_SYST 129; BP_SYST 148; BP_DIAS 66; BP_DIAS 67; PULSE 63; PULSE 78; RESP 17; RESP 21; TEMP 97.7; TEMP 98.2; O2SAT 93; O2SAT 96
--- NOTE | 2016-10-04 08:41 | HHI.PR ---
Subjective Remarks resting comfortably with no distress. no GI bleed. no abdominal pain, nausea or vomiting. wants to go home today. Objective Vitals Vital Signs Date Time Temp Pulse Resp B/P Pulse Ox O2 Delivery O2 Flow Rate FiO2 10/04/16 04:00 98.3 72 20 162/85 97 10/04/16 00:00 98.3 71 20 153/73 96 10/03/16 20:00 75 10/03/16 20:00 98.7 68 20 169/81 96 10/03/16 20:00 Room Air 10/03/16 18:44 96 Room Air 10/03/16 16:00 99.2 72 20 143/69 96 10/03/16 12:00 98.0 71 20 154/75 96 I/O 10/03/16 10/03/16 10/03/16 10/04/16 10/04/16 10/04/16 07:00 15:00 23:00 07:00 15:00 23:00 Intake Total 240 ml 600 ml 720 ml 480 ml Output Total 650 ml 1950 ml 3 ml 1000 ml Balance -410 ml -1350 ml 717 ml -520 ml Intake Oral 240 ml 600 ml 720 ml 480 ml Output Urine Total 650 ml 1950 ml 3 ml 1000 ml # Voids 4 # Bowel Movements 0 0 11 Result Diagram: 10/03/16 1148 10/03/16 1148 Imaging Last Impressions Liver Ultrasound 10/02/16 0000 Signed Impressions: Service Date/Time: September 14:01 - CONCLUSION: 1. Dense echogenic liver suggesting diffuse fatty infiltration. 2. Sludge-filled gallbladder. No pericholecystic fluid or significant gallbladder wall thickening identified. Ishaan Yin MD Chest X-Ray 10/01/16 0600 Signed Impressions: Service Date/Time: Saturday, October 01, 2016 03:42 - CONCLUSION: Probable worsening pulmonary edema. Jemal Ramirez MD Objective Remarks GENERAL: This is a well-nourished, well-developed patient, in no apparent distress. CARDIOVASCULAR: Regular rate and regular rhythm without murmurs, gallops, or rubs. RESPIRATORY: Clear to auscultation. Breath sounds equal bilaterally. No wheezes , rales, or rhonchi. GASTROINTESTINAL: Abdomen soft, non-tender, nondistended. Normal, active bowel sounds MUSCULOSKELETAL: Extremities without clubbing, cyanosis, or edema. NEURO: Alert & Oriented x4 to person, place, time, situation. Moves all ext x4 Procedures EGD intubation/extubation Medications and IVs Current Medications Etomidate 20 mg 20 mg STK-MED ONCE .ROUTE Last administered on 09/29/16 18:45 ; Start 09/29/16 at 18:24; Stop 09/29/16 at 18:25; Status DC Pantoprazole Sodium 80 mg/ Sodium Chloride 35 ml @ 420 mls/hr ONCE ONCE IV Last administered on 09/29/16 19:17; Start 09/29/16 at 18:30; Stop 09/29/16 at 18:34; Status DC Pantoprazole Sodium 80 mg/ Sodium Chloride 100 ml @ 10 mls/hr Q10H IV Last administered on 10/02/16 06:37; Start 09/29/16 at 18:30; Stop 10/02/16 at 08:51 ; Status DC Octreotide Acetate 500 mcg/ Sodium Chloride 500.5 ml @ 0 mls/hr ONCE ONCE IV Last administered on 09/29/16 19:51; Start 09/29/16 at 18:30; Stop 09/29/16 at 18:31; Status DC Propofol (Diprivan 1000 Mg/100ml Inj) 100 ml @ As Directed STK-MED ONCE .ROUTE Last administered on 09/29/16 18:45; Start 09/29/16 at 18:29; Stop 09/29/16 at 18:30; Status DC Sodium Chloride 2 ml 2 ml UNSCH PRN IVF FLUSH AFTER USING IV ACCESS; Start 04/05 at 18:30 Sodium Chloride 1,000 ml @ 999 mls/hr BOLUS ONCE IV Last administered on 09/29 18:59; Start 09/29/16 at 18:45; Stop 09/29/16 at 19:45; Status DC Sodium Chloride (NS 1000 ml Inj) 1,000 ml @ 999 mls/hr BOLUS ONCE IV Last administered on 09/29/16 18:59; Start 09/29/16 at 18:45; Stop 09/29/16 at 19:45 ; Status DC Succinylcholine Chloride (Quelicin Inj) 100 mg ONCE ONCE IV PUSH Last administered on 09/29/16 18:56; Start 09/29/16 at 18:45; Stop 09/29/16 at 18:46 ; Status DC Etomidate 20 mg 20 mg ONCE ONCE IV PUSH ; Start 09/29/16 at 18:45; Stop at 18:46; Status DC Propofol (Diprivan 1000 Mg/100ml Inj) 100 ml @ 0 mls/hr TITRATE IV Last administered on 10/01/16 11:15; Start 09/29/16 at 18:45; Stop 10/02/16 at 23:34 ; Status DC Octreotide Acetate 50 mcg 50 mcg ONCE ONCE IV Last administered on 09/29/16 19:52; Start 09/29/16 at 19:00; Stop 09/29/16 at 19:01; Status DC Octreotide Acetate/Sodium Chloride (SandoSTATIN INJ/ NS 500 ml Inj) 500.0 ml @ 50 mls/hr Q10H IV Last administered on 09/29/16 23:02; Start 09/29/16 at 21:00 ; Stop 09/29/16 at 23:21; Status DC Midazolam HCl (Versed Inj) 5 mg STK-MED ONCE .ROUTE ; Start 09/29/16 at 18:50; Stop 09/29/16 at 18:51; Status DC Midazolam HCl (Versed Inj) 2 mg ONCE ONCE IV PUSH Last administered on 18:57; Start 09/29/16 at 19:00; Stop 09/29/16 at 19:01; Status DC Rocuronium [place] (Zemuron Inj) 100 mg BOLUS ONCE IV Last administered on 18:58; Start 09/29/16 at 19:00; Stop 09/29/16 at 19:01; Status DC Rocuronium [place] (Zemuron Inj) 50 mg STK-MED ONCE .ROUTE Last administered on 09/29/16 18:57; Start 09/29/16 at 18:51; Stop 09/29/16 at 18:52; Status DC Rocuronium [place] 50 mg 50 mg STK-MED ONCE .ROUTE ; Start 09/29/16 at 18:54; Stop 09/29/16 at 18:55; Status DC Sodium Chloride (NS 1000 ml Inj) 1,000 ml @ 184 mls/hr Q5H27M IV Last administered on 09/30/16 04:45; Start 09/29/16 at 18:50; Stop 09/30/16 at 11:03 ; Status DC Sodium Chloride (NS Flush) 2 ml UNSCH PRN .XX FLUSH AFTER USING IV ACCESS; Start 09/29/16 at 19:00 Sodium Chloride (NS Flush) 2 ml BID .XX Last administered on 10/03/16 22:25; Start 09/29/16 at 21:00 Morphine Sulfate (Morphine Inj) 2 mg Q2H PRN IV PAIN SCALE 6 TO 10; Start 09/29 at 19:00 Pantoprazole Sodium (Protonix Inj) 40 mg Q12H IV Last administered on 20:04; Start 09/29/16 at 21:00; Stop 10/01/16 at 14:33; Status DC Midazolam HCl (Versed Inj) 2 mg Q1H PRN IV SEDATION Last administered on 23:03; Start 09/29/16 at 19:00; Stop 10/03/16 at 00:19; Status DC Artificial Tears (Tears Naturale Opth Soln) 1 drop TID EACH EYE Last administered on 10/01/16 17:40; Start 09/30/16 at 09:00; Stop 10/02/16 at 13:16 ; Status DC Ondansetron HCl (Zofran Inj) 4 mg Q6H PRN IV NAUSEA OR VOMITING; Start at 19:00 Metoclopramide HCl (Reglan Inj) 10 mg Q6H PRN IV NAUSEA OR VOMITING; Start 04/05 at 19:00 Prochlorperazine (Compazine Supp) 25 mg Q12H PRN RECTAL NAUSEA OR VOMITING; Start 09/29/16 at 19:00 Zolpidem Tartrate (Ambien) 5 mg HS PRN PO INSOMNIA Last administered on 22:24; Start 09/29/16 at 19:00 Albuterol/ Ipratropium (Duoneb Neb) 1 ampule Q2HR NEB PRN INH WHEEZING; Start 09/29/16 at 19:00 Miscellaneous Information 1 Q361D XX Last administered on 09/29/16 22:00; Start 09/29/16 at 19:00 Chlorhexidine Gluconate (Chlorhexidine 2% Cloth) 3 pack Taper DAILY@04 TOP Last administered on 10/02/16 04:00; Start 09/30/16 at 04:00; Stop 09/26/17 at 03:59 Chlorhexidine Gluconate (Chlorhexidine 2% Cloth) 3 pack UNSCH PRN TOP HYGIENIC CARE; Start 09/29/16 at 19:00 Senna/Docusate Sodium (Adela-Colace) 1 tab BID PO Last administered on 10:26; Start 09/29/16 at 21:00 Magnesium Hydroxide (Milk Of Magnesia Liq) 30 ml Q12H PRN PO MILD - MODERATE CONSTIPATION; Start 09/29/16 at 19:00 Sennosides (Senokot) 17.2 mg Q12H PRN PO MODERATE - SEVERE CONSTIPATION; Start 09/29/16 at 19:00 Bisacodyl (Dulcolax Supp) 10 mg DAILY PRN RECTAL SEVERE CONSITIPATION; Start at 19:00 Lactulose (Lactulose Liq) 30 ml DAILY PRN PO SEVERE CONSITIPATION; Start at 19:00; Stop 10/01/16 at 14:32; Status DC Epinephrine HCl 1 mg 1 mg STK-MED ONCE OTHER Last administered on 09/29/16 21: 23; Start 09/29/16 at 21:23; Stop 09/29/16 at 22:22; Status DC Midazolam HCl 100 ml @ 0 mls/hr TITRATE IV Last administered on 09/30/16 15:29 ; Start 09/29/16 at 22:45; Stop 10/02/16 at 23:34; Status DC Octreotide Acetate 500 mcg/ Sodium Chloride 500 ml @ 100 mls/hr Q5H IV Last administered on 10/02/16 04:40; Start 09/30/16 at 02:00; Stop 10/02/16 at 08:51 ; Status DC Dextrose/Sodium Chloride (D5W-NS 1000 ml Inj) 1,000 ml @ 30 mls/hr Q24H IV Last administered on 10/01/16 21:36; Start 09/30/16 at 11:15; Stop 10/02/16 at 23:46; Status DC Epinephrine HCl (Adrenalin (1:1000) Inj) 1 mg STK-MED ONCE OTHER Last administered on 09/30/16 14:00; Start 09/30/16 at 14:00; Stop 09/30/16 at 14:34 ; Status DC Propofol (Diprivan 200 Mg/20 ml Inj) 100 mg STK-MED ONCE IV ; Start 09/30/16 at 14:35; Stop 09/30/16 at 14:36; Status DC Rifaximin (Xifaxan) 550 mg BID PO Last administered on 10/03/16 22:22; Start 10/01/16 at 21:00 Lactulose (Lactulose Liq) 30 ml BID PO Last administered on 10/03/16 10:26; Start 10/01/16 at 21:00 Pantoprazole Sodium (Protonix) 40 mg Q12HR PO Last administered on 10/03/16 22 :23; Start 10/02/16 at 09:00 Lisinopril (Prinivil) 20 mg DAILY PO Last administered on 10/03/16 11:44; Start 10/03/16 at 10:00 Clopidogrel Bisulfate (Plavix) 75 mg DAILY PO Last administered on 10/03/16 15 :23; Start 10/03/16 at 12:00 Aspirin (Ecotrin Ec) 81 mg DAILY PO Last administered on 10/03/16 15:22; Start 10/03/16 at 12:00 Date of Insertion: Sep 29, 2016 A/P Assessment and Plan A/P acute respiratory failure-resolved Upper GI bleed Mahi-Crenshaw tear - GI following-Dr. Palomares - Status post upper EGDx 2 and cauterization of distal esophagus, 2 ulcers - Discontinued Protonix drip and octreotide per GI recommendations; started on po protonix -Diet advanced per GI -Lactulose and rifaximin continued per GI recommendations Coronary artery disease - resumed Plavix/aspirin ; ok with GI. - No acute issues - Supportive care History of hypertension - resume lisinopril - continue to monitor Dyslipidemia - Continue rosuvastatin Discharge Planning dc home with [facility] today. see med list. f/u; pcp and GI. d/w the patient. Keenan Dumont MD Oct 04, 2016 08:41
[2016-10-04] MEDS ORDERED: PANT40TA3 PO (08:43)
[2016-10-04] MEDS ORDERED: ASPI-99 PO (08:43)
[2016-10-04] MEDS ORDERED: XIFA550T4 PO (08:43)
--- NOTE | 2016-10-04 08:43 | HHI.DCPOC ---
Discharge Care Plan Diagnosis: (1) Upper GI bleed Your Health Problems Are: Bleeding Tendency Goals to Promote Your Health * To prevent worsening of your condition and complications * To maintain your health at the optimal level Directions to Meet Your Goals Take your medications as prescribed Follow your dietary instruction Follow activity as directed Keep your appointments as scheduled Take your immunizations and boosters as scheduled If your symptoms worsen call your PCP, if no PCP go to Urgent Care Center or Emergency Room Smoking is Dangerous to Your Health. Avoid second hand smoke Call the 24-hour hour crisis hotline for domestic abuse at Keenan Dumont MD Oct 04, 2016 08:43
--- NOTE | 2016-10-04 08:44 | HHI.DS ---
Discharge Summary Admission Date Sep 29, 2016 at 18:49 Discharge Date: Oct 04, 2016 Admitting Diagnosis upper GI bleed, respiratory failure (1) Upper GI bleed ICD Code: K92.2 Diagnosis: Principal Procedures EGD intubation/extubation Brief History - From Admission 55-year-old male came to the emergency room brought by his for vomiting blood. Patient was little nauseous earlier today and vomited and saw a big blob of blood. Since then he has vomited couple of times and it's all bloody. He looked in distress and very diaphoretic. Patient drinks about 3 cocktails of whiskey every day and has been doing it for quite a few months. He is also on Plavix. While in the emergency department he vomited a large amount of blocked per documentation about 800 cc. He was intubated by ER attending for an airway protection and was taking emergently to ICU where the EGD was performed by GI specialist. CBC/BMP: 10/03/16 1148 10/03/16 1148 Significant Findings Laboratory Tests Test 10/02/16 10/02/16 10/02/16 10/03/16 01:12 06:27 22:27 11:48 Hemoglobin 12.7 GM/DL 11.9 GM/DL 12.7 GM/DL 12.6 GM/DL (13.0-17.0) (13.0-17.0) (13.0-17.0) (13.0-17.0) Hematocrit 37.9 % 34.1 % 37.7 % 37.6 % (39.0-51.0) (39.0-51.0) (39.0-51.0) (39.0-51.0) Red Blood Count 3.91 MIL/MM3 4.30 MIL/MM3 (4.50-5.90) (4.50-5.90) Platelet Count 120 TH/MM3 (150-450) Chloride Level 108 MEQ/L (98-107) Random Glucose 108 MG/DL 113 MG/DL (74-106) (74-106) Calcium Level 8.0 MG/DL (8.5-10.1) Phosphorus Level 2.1 MG/DL (2.5-4.9) Ammonia 38 MCMOL/L (11-32) Neutrophils (%) (Auto) 80.2 % (16.0-70.0) Potassium Level 3.2 MEQ/L (3.5-5.1) Imaging Last Impressions Liver Ultrasound 10/02/16 0000 Signed Impressions: Service Date/Time: September 14:01 - CONCLUSION: 1. Dense echogenic liver suggesting diffuse fatty infiltration. 2. Sludge-filled gallbladder. No pericholecystic fluid or significant gallbladder wall thickening identified. Ishaan Yin MD Chest X-Ray 10/01/16 0600 Signed Impressions: Service Date/Time: Saturday, October 01, 2016 03:42 - CONCLUSION: Probable worsening pulmonary edema. Jemal Ramirez MD PE at Discharge GENERAL: This is a well-nourished, well-developed patient, in no apparent distress. CARDIOVASCULAR: Regular rate and regular rhythm without murmurs, gallops, or rubs. RESPIRATORY: Clear to auscultation. Breath sounds equal bilaterally. No wheezes , rales, or rhonchi. GASTROINTESTINAL: Abdomen soft, non-tender, nondistended. Normal, active bowel sounds MUSCULOSKELETAL: Extremities without clubbing, cyanosis, or edema. NEURO: Alert & Oriented x4 to person, place, time, situation. Moves all ext x4 Hospital Course acute respiratory failure-resolved Upper GI bleed Mahi-Crenshaw tear - GI following-Dr. Palomares - Status post upper EGDx 2 and cauterization of distal esophagus, 2 ulcers - Discontinued Protonix drip and octreotide per GI recommendations; started on po protonix -Diet advanced per GI -Lactulose and rifaximin continued per GI recommendations Coronary artery disease - resumed Plavix/aspirin ; ok with GI. - No acute issues - Supportive care History of hypertension - resume lisinopril - continue to monitor Dyslipidemia - Continue rosuvastatin Pt Condition on Discharge: Good Discharge Disposition: Disch w/ Home Health Serv Discharge Time: <= 30 minutes Discharge Instructions DIET: Follow Instructions for: Heart Healthy Diet Activities you can perform: Regular-No Restrictions Follow up Referrals: Gastroenterology PCP Follow-up New Medications: Aspirin DR (Adult Aspirin EC Low Strength) 81 Mg Tabec 81 MG PO DAILY cad Days 30 Ref 0 TAB Pantoprazole (Pantoprazole) 40 Mg Tab 40 MG PO Q12HR PUD Days 30 Ref 0 TAB Rifaximin (Xifaxan) 550 Mg Tab 550 MG PO BID antibiotic Days 30 Ref 0 TAB Continued Medications: Clopidogrel (Clopidogrel) 75 Mg Tab 75 MG PO DAILY Blood Clot Prevention #30 Ref 0 TAB Gabapentin (Gabapentin) 100 Mg Cap 100 MG PO HS #30 Ref 0 CAP Lisinopril (Lisinopril) 20 Mg Tab 20 MG PO DAILY #30 Ref 0 TAB Rosuvastatin (Rosuvastatin) 20 Mg Tab 20 MG PO DAILY Cholesterol Management #30 Ref 0 TAB Tizanidine (Tizanidine) 4 Mg Cap 4 MG PO TID Muscle Spasm Ref 0 CAP Discontinued Medications: Diclofenac (Zorvolex) 18 Mg Cap 18 MG PO TID Pain Management Ref 0 CAP Keenan Dumont MD Oct 04, 2016 08:44
[2016-10-04] MEDS: RIFAXIMIN 550 MG TAB PO SCH (09:37)
[2016-10-04] MEDS: ASPIRIN EC 81 MG TABEC PO SCH (09:38)
[2016-10-04] MEDS: LISINOPRIL 20 MG TAB PO SCH (09:38)
[2016-10-04] MEDS: CLOPIDOGREL 75 MG TAB PO SCH (09:38)
[2016-10-04] MEDS: PANTOPRAZOLE SOD 40 MG DELAYED RELEASE TAB PO SCH (09:38)
[2016-10-04] MEDS: LACTULOSE SYRUP 20 GM/30 ML CUP PO SCH (09:39)
[2016-10-04] MEDS: DOCUSATE SODIUM 50 MG/SENNA 8.6 MG TAB PO SCH (09:39)
[2016-10-04] MEDS: SODIUM CHLORIDE 0.9% FLUSH 10 ML FLUSH SCH (09:40)
--- NOTE | 2016-10-08 12:54 | PQ ---
Physician Query Response Document PATIENT: BEKAH JADE : 1960 ADMIT DATE: 09/29/2016 6:49 PM DISCH DATE: 10/04/2016 12:38 PM RESPONDING PROVIDER #: [email or web address] QUERY TEXT: Anemia Type Anemia is documented in the Medical Record. Please specify the cause (includes suspected or probable cause) Such as: -- Due to acute blood loss -- Due to chronic blood loss -- Due to iron deficiency -- Due to postoperative blood loss -- Due to chronic disease -- Other, please specify If you have any additional questions/comments and/or concerns, please do not hesitate to reach out ot the [facility]/Coding Hotline, Ext. [phone]. The patient's Clinical Indicators include: H He was intubated by ER attending for an airway protection and was taking emergently to ICU where the EGD was performed by GI specialist. Anemia secondary to blood loss- documented in GI progress notes. H Test 09/30/16 10/01/16 10/01/16 10/01/16 16:08 00:13 05:02 05:40 Hemoglobin 13.1 12.6 12.0 Hematocrit 39.7 36.3 36.2 Query created by: La Jimenez on 10/07/2016 4:31 PM RESPONSE TEXT: Anemia due to acute blood loss. Electronically signed by: Keenan Dumont MD 10/08/2016 12:50 PM
== END 2016-10-04 12:38 | disposition home health service (06) | DRG 368 ==
LOC: NEPC 17:57 → NEDA 18:49 → HIME 20:40 → N04B 10-02 23:57
PROVIDERS: ADMIT Internal Medicine; ATTEND Internal Medicine
PROC: 5A1945Z Respiratory Ventilation, 24-96 Consecutive Hours (ICD-10-PCS; 2016-09-29)
PROC: 0BH17EZ Insertion of Endotracheal Airway into Trachea, Via Natural or Artificial Opening (ICD-10-PCS; 2016-09-29)
PROC: 30233R1 Transfusion of Nonautologous Platelets into Peripheral Vein, Percutaneous Approach (ICD-10-PCS; 2016-09-29)
PROC: 30233N1 Transfusion of Nonautologous Red Blood Cells into Peripheral Vein, Percutaneous Approach (ICD-10-PCS; 2016-09-29)
PROC: 0W3P8ZZ Control Bleeding in Gastrointestinal Tract, Via Natural or Artificial Opening Endoscopic (ICD-10-PCS; principal; 2016-09-29 21:00)
PROC: 0W3P8ZZ Control Bleeding in Gastrointestinal Tract, Via Natural or Artificial Opening Endoscopic (ICD-10-PCS; 2016-09-30)
PROC: 3E0G8GC Introduction of Other Therapeutic Substance into Upper GI, Via Natural or Artificial Opening Endoscopic (ICD-10-PCS; 2016-09-30)
DX: K22.6 Gastro-esophageal laceration-hemorrhage syndrome (principal); J96.00 Acute respiratory failure, unspecified whether with hypoxia or hypercapnia; G93.40 Encephalopathy, unspecified; D62 Acute posthemorrhagic anemia; K22.11 Ulcer of esophagus with bleeding; I25.10 Atherosclerotic heart disease of native coronary artery without angina pectoris; I10 Essential (primary) hypertension; E78.5 Hyperlipidemia, unspecified; Z87.891 Personal history of nicotine dependence; D69.6 Thrombocytopenia, unspecified; Z72.89 Other problems related to lifestyle; Z79.02 Long term (current) use of antithrombotics/antiplatelets
CPT/HCPCS: 31500; 36430; 36600; 51702; 71010; 76705; 80048; 80053; 82140; 82805; 82948; 83735; 84100; 85014; 85018; 85025; 85027; 85610; 85730; 86850; 86900; 86901; 86920; 87641; 94002; 94003; 94150; 96374; C9113; J0171; J0330; J2250; J2354; J7030; J7040; J7042; P9016; P9035